=== PATIENT | female | born 1940 | race Caucasian/White ===

== ENCOUNTER 2019-03-25 09:06 | Outpatient (RCR) | payer MEDICARE, OTHER, SELFPAY ==
[2019-03-25 09:33] VITALS: BMI 34.4
[2019-03-25 10:38] VITALS: BMI 34.4
== END 2019-06-23 23:59 | disposition home or self-care (01) ==
LOC: ANHDMC 09:06
PROVIDERS: PCP Family Medicine; Visit Provider Family Medicine
DX: E11.9 Type 2 diabetes mellitus without complications (principal); Z71.3 Dietary counseling and surveillance
CPT/HCPCS: 97803

== ENCOUNTER 2019-06-11 14:34 | Emergency (ER) | payer MEDICARE, OTHER, SELFPAY ==
--- NOTE | ~2019-06-11 | XR_ITS ---
EXAMINATION: XR chest 2V EXAM DATE: 06/11/2019 15:26 INDICATION: Mid sternal chest pain. TECHNIQUE: Frontal and lateral projections of the chest obtained and reviewed. Comparison is made to prior examination from 08/21/2018. FINDINGS: The lungs are clear. There are no pleural effusions. The cardiomediastinal silhouette is within normal limits. There is no pneumothorax suspected. The bones and soft tissues are unremarkab le. Cervical fusion hardware. Left glenohumeral joint replacement. Possible gastroesophageal hiatal hernia. IMPRESSION: No acute cardiopulmonary findings. Possible gastroesophageal hiatal hernia. Reviewed, dictated and finalized at location B. 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
[2019-06-11 14:44] VITALS: BP 152/82; PULSE 88; RESP 17; TEMP 37.1; O2SAT 100
--- NOTE | 2019-06-11 14:44 | ECG_ITS ---
Measurements Intervals [place] Rate: 90 P: 34 HI: 163 QRS: 13 QRSD: 90 T: 70 QT: 359 QTc: 440 Interpretive Statements SINUS RHYTHM FREQUENT ATRIAL PREMATURE COMPLEXES VOLTAGE CRITERIA FOR LVH NONSPECIFIC ST & T-WAVE ABNORMALITY- DIFFUSE LEADS ABNORMAL ECG Electronically Signed On 06-11-2019 14:48:19 CABLE WEAVER by Yunior Mosher D.O.
[2019-06-11 14:57] LABS: Basophils Percent Auto 0.6 % (0.2-1.2); Eosinophils Absolute Auto 0.2 K/mm3 (0-0.3); Eosinophils Percent Auto 2.5 % (0-4.4); Hematocrit 37.3 % (37.0-47.0); Hemoglobin 12.1 g/dL (12.0-15.0); Immature Granulocyte Absolute 0.02 K/mm3 (0.00-0.031); Immature Granulocyte Percent A 0.3 % (0-0.5); Lymphocytes Absolute Auto 1.23 K/mm3 (0.9-3.2); Lymphocytes Percent Auto 17.3 % (18.3-44.2); Mean Corpuscular HGB Conc 32.4 g/dl (32-36); Mean Corpuscular Hemoglobin 29.4 pg (26-34); Mean Corpuscular Volume 90.5 fl (80-100); Mean Platelet Volume 9.5 fl (7.4-10.4); Monocytes Absolute Auto 0.5 K/mm3 (0.1-0.6); Neutrophils Absolute Auto 5.1 K/mm3 (1.3-6.7); Neutrophils Percent Auto 72.3 % (45.5-73.1); Platelet Count Result 283 k/mm3 (150-375); Red Blood Count 4.12 M/mm3 (4.2-5.4); Red Cell Distribution Width 12.8 % (11.5-14.5); White Blood Count 7.1 K/mm3 (4.5-10.0)
[2019-06-11 15:08] LABS: Blood Urea Nitrogen 21 mg/dL (7-17); Calcium 8.7 mg/dL (8.4-10.2); Carbon Dioxide 25 mmol/L (22-30); Chloride 98 mmol/L (98-107); Estimated Glomerular Filt Rate > 60; Glucose 302 mg/dL (65-105); Sodium 138 mmol/L (137-145)
[2019-06-11 15:11] LABS: Prothrombin Time 13.3 Seconds (11.1-14.7)
[2019-06-11 15:20] LABS: Troponin I < 0.012 ng/mL (0.000-0.034)
[2019-06-11 16:24] VITALS: BP 161/72; PULSE 84; RESP 21; TEMP 36.8; O2SAT 100; O2SAT 98
--- NOTE | 2019-06-11 16:29 | ED.CHESTPAIN ---
HPI - Chest Pain General Chief Complaint: Chest Pain Stated Complaint: Chest Pain Time Seen by Provider: 06/11/19 16:20 Source: patient and RN notes reviewed Mode of arrival: ambulatory Limitations: no limitations History of Present Illness HPI narrative: A 79 y/o female presents to the ED with constant central chest heaviness beginning last night. She states that she has been having URI symptoms for awhile and was seen by her PCP on Saturday. She reports that she was placed on tetracycline at that time. She notes that a bright pink productive cough. She denies anything aggravating or alleviating her symptoms. She also denies any edema, SOB, fevers, chills, N/V/D, ABD pain, and any other medical complaints at this time. MD complaint: chest heaviness Pertinent past history: asthma Onset (ago): day(s) (last night) Timing of current episode: constant Pain location: other (central) Quality: heaviness Relieving factors: nothing Exacerbating factors: nothing Context: recent illness, new medications (tetracycline) and history of DVT/PE Associated symptoms: cough (bright pink productive) Related Data Home Medications Medication Instructions Recorded Confirmed atorvastatin 10 mg tablet 10 mg PO QPM tablet 03/11/19 blood sugar diagnostic #10 each 03/11/19 furosemide 40 mg tablet 40 mg PO QAM PRN 03/26/19 Allergies Allergy/AdvReac Type Severity Reaction Status Date / Time No Known Allergies Allergy Verified 06/08/19 08:23 Review of Systems Review of Systems: All systems reviewed & are unremarkable except as noted in HPI and below Constitutional: Constitutional: Denies chills, Denies fatigue, Denies fever(s), Denies headache(s) and Denies night sweats Eyes: Eyes: Denies change in vision, Denies loss of vision and Denies other visual disturbances ENT: Denies headache(s), Denies hoarseness, Denies epistaxis, Denies nasal congestion and Denies sore throat Cardiovascular: Cardiovascular: Reports chest pain (central heaviness), Denies leg edema, Denies palpitations and Denies dyspnea Respiratory: Respiratory: Reports cough (pink productive), Denies dyspnea and Denies wheezing Gastrointestinal: Gastrointestinal: Denies abdominal pain, Denies diarrhea, Denies nausea and Denies vomiting Genitourinary: Genitourinary: Denies hematuria, Denies urinary frequency and Denies dysuria Musculoskeletal: Musculoskeletal: Denies abnormal gait, Denies deformity, Denies joint swelling, Denies muscle weakness and Denies numbness Integumentary/Breasts: Skin/Breast: Denies rash, Denies unusual bruising and Denies wounds Neurologic: Denies abnormal gait, Denies headache(s), Denies focal weakness, Denies loss of vision and Denies numbness Psychiatric: Psychiatric: Reports no additional psychiatric complaints Endocrine: Endocrine: Denies fatigue and Denies palpitations Hematologic/Lymphatic: Hematologic/Lymphatic: Denies easy bleeding and Denies easy bruising Allergic/Immunologic: Allergic/Immunologic: Denies wheezing PMFSH Past Medical History Medical History Asthma Blood clot in vein Broken neck Bronchitis DDD (degenerative disc disease) Diverticulosis DM (diabetes mellitus) DVT (deep venous thrombosis) Early cataracts, bilateral GERD (gastroesophageal reflux disease) History of rectal polyps OA (osteoarthritis) Pulmonary embolism Shingles Sinusitis, bacterial Type 2 diabetes mellitus Surgical History Surgical History History of back surgery History of bladder surgery History of foot surgery History of hysterectomy History of knee replacement procedure of left knee History of knee replacement procedure of right knee History of neck surgery History of shoulder replacement History of tonsillectomy Family History Family History Sibling Family history of blood dyscrasia Family history of cardiovas
[2019-06-11 16:39] VITALS: BP 145/89; PULSE 83; RESP 16; O2SAT 100
[2019-06-11 17:30] VITALS: BP 144/96; PULSE 83; RESP 20; TEMP 36.2; O2SAT 98
[2019-06-11 18:20] LABS: Troponin I 0.012 ng/mL (0.000-0.034)
[2019-06-11] MEDS: BELLADONNA ALK/PHENOB ELIX 10 ML, MAG HYDROX/ALUMINUM HYD/SIMETH 30 ML, LIDOCAINE HCL 2... PO (19:30)
[2019-06-11 20:59] VITALS: BP 132/70; PULSE 78; RESP 18; TEMP 36.6; O2SAT 97
== END 2019-06-11 21:01 | disposition home or self-care (01) ==
PROVIDERS: Emergency Medicine; Emergency Provider Emergency Medicine; PCP Family Medicine
DX: K20.9 Esophagitis, unspecified (principal); E11.9 Type 2 diabetes mellitus without complications; Z86.718 Personal history of other venous thrombosis and embolism
CPT/HCPCS: 36415; 71046; 80048; 84484; 85025; 85610; 85730; 93005; 99284; A9270

== ENCOUNTER 2019-08-31 09:49 | Outpatient (CLI) | payer MEDICARE, OTHER, SELFPAY ==
--- NOTE | ~2019-08-31 | XR_ITS ---
XR hip RT min 3V w AP pelvis DATE: 08/31/2019 10:05 INDICATION: Right hip pain for one month. Fall 6 months ago. TECHNIQUE: AP pelvis. AP, lateral and crosstable lateral views of right hip COMPARISON: None FINDINGS: There is osteitis pubis. The pubic symphysis and sacral iliac joints are intact. There is degenerative disease and degenerative change at the apophyseal joints in the included lower lumbar and lumbosacral area. No pelvic fracture or bone destruction. No fracture, dislocation, avascular necrosis or bone destruction of the right hip. IMPRESSION: Osteitis pubis Degenerative changes of the lumbar and lumbosacral spine No fracture or dislocation or bone destruction of the right hip Reviewed, dictated and finalized at location A.
== END 2019-08-31 09:50 | disposition home or self-care (01) ==
PROVIDERS: PCP Family Medicine; Visit Provider Family Medicine
DX: M25.551 Pain in right hip (principal); M47.26 Other spondylosis with radiculopathy, lumbar region; M86.8X8 Other osteomyelitis, other site
CPT/HCPCS: 73502

== ENCOUNTER 2020-03-11 07:32 | Outpatient (CLI) | payer MEDICARE, OTHER, SELFPAY | END 2020-03-11 07:33 | disposition home or self-care (01) | PROVIDERS: PCP Family Medicine; Visit Provider Physician Assistant | DX: K52.9 Noninfective gastroenteritis and colitis, unspecified (principal) | CPT/HCPCS: 87045; 87046; 87324; 87427 ==

== ENCOUNTER 2020-08-16 09:25 | Outpatient (CLI) | payer MEDICARE, OTHER, SELFPAY ==
--- NOTE | ~2020-08-16 | MM_ITS ---
EXAMINATION: [place] [facility] [place] HISTORY: Screening TECHNIQUE: Craniocaudal and mediolateral oblique 3-D tomosynthesis images were obtained and synthetic 2-D images were generated. CAD analysis was submitted and interpreted. COMPARISON: Comparison to multiple prior studies sequentially, with oldest reviewed study dated 11/2012. BREAST PARENCHYMAL COMPOSITION: There are scattered areas of fibroglandular density. FINDINGS: There are developing clustered calcifications in the upper inner quadrant of the left breas t, middle third. The right breast is stable without evidence for malignancy. IMPRESSION: 1. Developing clustered nonspecific left breast calcifications, upper inner quadrant. 2. Magnification views are recommended. BI-RADS Category 0: Incomplete: Needs additional imaging evaluation. Reviewed, dictated and finalized at location A. IMPRESSION: 1. Developing clustered nonspecific left breast calcifications, upper inner mandi drant. 2. Magnification views are recommended. BI-RADS Category 0: Incomplete: Needs additional imaging evaluation.
== END 2020-08-16 09:26 | disposition home or self-care (01) ==
LOC: ANHIMG 09:33
PROVIDERS: PCP Family Medicine; Visit Provider Family Medicine
DX: Z12.31 Encounter for screening mammogram for malignant neoplasm of breast (principal); R92.8 Other abnormal and inconclusive findings on diagnostic imaging of breast
CPT/HCPCS: 77063; 77067

== ENCOUNTER 2020-08-26 11:51 | Outpatient (CLI) | payer MEDICARE, OTHER, SELFPAY ==
--- NOTE | ~2020-08-26 | MM_ITS ---
EXAMINATION: MM diagnostic mammo unilat LT HISTORY: Left breast calcifications on screening mammogram TECHNIQUE: Magnification views of the left breast were performed. CAD analysis was submitted and int erpreted. COMPARISON: 08/16/2020, 05/01/2019,02/29/2016 FINDINGS: There are calcifications at the 12:00 location in the breast approximately 7 cm from the ni pple. These are too small and two few in number to characterize. No associated mass or architectural distortion is identified. IMPRESSION: 1. Probably benign left breast calcifications. 2. Recommend 6 month follow-up left diagnostic mammogram. BI-RADS category 3, probably benign findings. Reviewed, dictated and finalized at location A.
== END 2020-08-26 11:52 | disposition home or self-care (01) ==
LOC: ANHIMG 11:53
PROVIDERS: PCP Family Medicine; Visit Provider Physician Assistant
DX: R92.8 Other abnormal and inconclusive findings on diagnostic imaging of breast (principal)
CPT/HCPCS: 77065

== ENCOUNTER 2020-09-13 18:03 | Emergency (ER) | payer MEDICARE, OTHER, SELFPAY ==
[2020-09-13 18:09] VITALS: BP 150/73; PULSE 76; RESP 18; TEMP 36.6; O2SAT 97
--- NOTE | 2020-09-13 18:41 | ED.EXTPRO ---
HPI - Extremity Problem General Chief complaint: Extremity Problem,Nontraumatic Stated complaint: right calf pain Time Seen by Provider: 09/13/20 18:35 Source: patient Mode of arrival: ambulatory Limitations: no limitations History of Present Illness HPI Narrative: Patient is a 80-year-old female complaining of right leg pain, mild, aching, started approximately 1 month ago, but states that when she saw her field software engineer last week there was pain when he palpated on her calf but today there is no pain. Patient saw her field software engineer today and was told to go to the emergency room to rule out a DVT. Denies any injury to her right leg. Patient denies any chest pain, shortness of breath, fever or chills. Related Data Home Medications Medication Instructions Recorded Confirmed cholecalciferol (vitamin D3) 25 25 mcg PO DAILY 07/09/19 03/09/20 mcg (1,000 unit) capsule fexofenadine 180 mg tablet 180 mg PO DAILY 07/09/19 03/09/20 guaifenesin 600 mg tablet, 600 mg PO BID 07/09/19 03/09/20 extended release 12 hr mecobalamin (vitamin B12) 1,000 1,000 mcg PO DAILY 07/09/19 03/09/20 mcg chewable tablet Allergies Allergy/AdvReac Type Severity Reaction Status Date / Time No Known Allergies Allergy Verified 09/13/20 18:13 Review of Systems Review of Systems: All systems reviewed & are unremarkable except as noted in HPI and below PMFSH Past Medical History Medical History Asthma Blood clot in vein Broken neck Bronchitis Cough DDD (degenerative disc disease) Diverticulosis DM (diabetes mellitus) DVT (deep venous thrombosis) Early cataracts, bilateral Esophagitis GERD (gastroesophageal reflux disease) Hiatal hernia History of rectal polyps Hypertension OA (osteoarthritis) Pulmonary embolism Right hip pain Shingles Sinusitis, bacterial Type 2 diabetes mellitus Surgical History Surgical History History of back surgery History of bladder surgery History of foot surgery History of hysterectomy History of knee replacement procedure of left knee History of knee replacement procedure of right knee History of neck surgery History of shoulder replacement History of tonsillectomy Family History Family History Sibling Family history of blood dyscrasia Family history of cardiovascular disease Social History Social History Smoking status: Never smoker Second hand tobacco smoke exposure: No Alcohol intake: current Drinks per week: 2 Substance use: never Substance use type: does not use Gender identity (if verbalized by the patient): Female Spiritual care concerns: No Exam Const: General: cooperative, healthy appearing, comfortable, no acute distress, well developed, alert and awake; No confusion Orientation/consciousness: oriented to person, oriented to place, oriented to time, patient oriented x3 and No confusion Limitations: no limitations HENMT: Head: normal to inspection, normocephalic and atraumatic Ears: hearing grossly normal bilaterally, TM normal on the right and TM normal on the left General nose exam: Normal external nose present, Normal nares present and No nasal discharge present Face and sinus: normal facial exam Mouth: Yes Normal oral and palatal mucosa present, Yes lip normal, Yes tongue normal and Yes oropharynx normal Throat: posterior oropharynx normal, tonsils normal and uvula midline Eyes: General: appearance normal, both eyes and all related structures Pupils: Equal, round and reactive pupils present EOM: EOMs intact bilaterally Neck: Neck: normal visual inspection, full ROM, no lymphadenopathy and no meningeal signs Chest: Chest palpation & inspection: normal inspection of the chest Resp: Effort & Inspection: normal respiratory effort, able to speak in c
== END 2020-09-13 19:38 | disposition home or self-care (01) ==
PROVIDERS: Emergency Provider Emergency Medicine; PCP Family Medicine
DX: M79.604 Pain in right leg (principal); J45.909 Unspecified asthma, uncomplicated; E11.9 Type 2 diabetes mellitus without complications; Z86.718 Personal history of other venous thrombosis and embolism; K21.9 Gastro-esophageal reflux disease without esophagitis; I10 Essential (primary) hypertension; M19.90 Unspecified osteoarthritis, unspecified site
CPT/HCPCS: 99281

== ENCOUNTER 2020-09-14 07:17 | Outpatient (CLI) | payer MEDICARE, OTHER, SELFPAY ==
--- NOTE | ~2020-09-14 | US_ITS ---
EXAMINATION: US venous doppler LE RT DATE: 09/14/2020 08:07 INDICATION: Right lower limb pain and swelling TECHNIQUE: Grayscale ultrasound images without and with compression and Doppler ultrasound images of the right lower extremity veins were obtained. COMPARISON: 03/10/2018 FINDINGS: The visualized portions of right common femoral vein, profunda (deep) femoral vein, femoral vein, pop liteal vein, peroneal trunk, posterior tibial veins, peroneal veins, gastrocnemius vein and greater s aphenous vein outflow remain patent. IMPRESSION: 1. No deep venous thrombosis in the right lower limb. Reviewed, dictated and finalized at location A.
== END 2020-09-14 07:18 | disposition home or self-care (01) ==
PROVIDERS: PCP Family Medicine; Referring Provider Podiatrist Foot & Ankle Surgery; Visit Provider Family Medicine
DX: M79.604 Pain in right leg (principal)
CPT/HCPCS: 93971

== ENCOUNTER → 2020-09-19 12:34 | Outpatient (CLI) | payer MEDICARE, OTHER, SELFPAY ==
--- NOTE | ~2020-09-19 | XR_ITS ---
XR chest 2V 09/19/2020 13:24 Indication: Shortness of breath. History of COPD. Procedure: 2 view chest Comparison: Comparison to multiple prior studies sequentially, with oldest reviewed study dated 08/2012. Findings: Heart size normal. Small hiatal hernia. Chronic atelectasis/scarring left midlung zone. The re are bilateral shoulder arthroplasties. There is spinal fusion changes at the cervicothoracic junct ion. No acute focal pneumonia, edema or effusion. Impression: 1: No acute cardiopulmonary disease. Reviewed, dictated and finalized at location B. Impression: 1: No acute cardiopulmonary disease.
== END ==
PROVIDERS: Visit Provider Physician Assistant
DX: R06.02 Shortness of breath (principal)
CPT/HCPCS: 71046

== ENCOUNTER 2021-02-27 10:36 | Outpatient (CLI) | payer MEDICARE, OTHER, SELFPAY ==
--- NOTE | ~2021-02-27 | MM_ITS ---
EXAMINATION: MM diagnostic [place] LT w [facility] HISTORY: Six-month follow-up for probably benign left breast calcifications TECHNIQUE: Craniocaudal, mediolateral, and mediolateral oblique 3-D tomosynthesis images of the left breast were performed and synthetic 2-D images were generated. Magnification views are also obtained. CAD analysis was submitted and interpreted. COMPARISON: 08/26/2020, 08/16/2020, 05/01/2019,02/29/2016 BREAST PARENCHYMAL COMPOSITION: There are scattered areas of fibroglandular density. FINDINGS: Again seen are stable calcifications at the 12:00 location approximately 7 cm from the nipp le. These remain too few in number to characterize and have not increased in size or number. No assoc iated mass or architectural distortion are identified. IMPRESSION: 1. Stable, probably benign left breast calcifications. 2. Recommend 6 month follow-up diagnostic mammogram. BI-RADS category 3, probably benign findings. Reviewed, dictated and finalized at location A. E CRUSHER
== END 2021-02-27 10:37 | disposition home or self-care (01) ==
LOC: ANHIMG 10:40
PROVIDERS: PCP Family Medicine; Visit Provider Physician Assistant
DX: R92.8 Other abnormal and inconclusive findings on diagnostic imaging of breast (principal)
CPT/HCPCS: 77061; 77065; G0279

== ENCOUNTER 2021-08-22 11:11 | Outpatient (CLI) | payer MEDICARE, OTHER, SELFPAY ==
--- NOTE | ~2021-08-22 | MM_ITS ---
EXAMINATION: MM diagnostic [place] BI w [facility] HISTORY: Follow-up left breast calcifications TECHNIQUE: Additional 3-D tomosynthesis images of the breasts were performed and synthetic 2-D images were generated. CAD analysis was submitted and interpreted. COMPARISON: Comparison to multiple prior studies sequentially, with oldest reviewed study dated 06/2014. BREAST PARENCHYMAL COMPOSITION: 02/15/2015 FINDINGS: There are stable left breast calcifications, likely benign. No new masses, calcifications o r architectural distortion in either breast to suggest malignancy. IMPRESSION: 1. Stable likely benign left breast calcifications. 2. Given one year of interval stability, recommend 12 month followup diagnostic bilateral mammogram BI-RADS category 3, probably benign findings. Reviewed, dictated and finalized at location A.
== END 2021-08-22 11:12 | disposition home or self-care (01) ==
PROVIDERS: PCP Family Medicine; Visit Provider Physician Assistant
DX: R92.8 Other abnormal and inconclusive findings on diagnostic imaging of breast (principal)
CPT/HCPCS: 77062; 77066; G0279

== ENCOUNTER 2022-07-06 13:02 | Emergency (ER) | payer MEDICARE, OTHER, SELFPAY ==
--- NOTE | ~2022-07-06 | CT_ITS ---
EXAMINATION: CTA chest PE protocol DATE: 07/06/2022 14:39 INDICATION: Shortness of breath TECHNIQUE: Computed tomography angiography (CTA) of the chest was performed with 100 mL Omnipaque-350 intravenous contrast timed to evaluate the pulmonary arteries. Coronal maximum intensity projection 3D-reconstructions were created by the technologist. The dose-length product (DLP) was 392.56 mGy-cm. Automated exposure control and iterative reconstruction technique were employed. COMPARISON: None. FINDINGS: The pulmonary arteries are well-opacified. No pulmonary embolism is identified. There is mi ld atelectasis in the lingula and lower lobes. No pleural effusion or pneumothorax. There is a modera te-sized sliding hiatal hernia. No pathologically enlarged thoracic lymph nodes are identified. The h eart size is normal. Changes of bilateral total shoulder arthroplasty and anterior fusion at the cerv icothoracic junction are noted. There is moderate thoracic spondylosis. Cysts of the liver measure u p to 4 cm in the right hepatic lobe. IMPRESSION: 1. . Bullous identified. 2. Moderate-sized sliding hiatal hernia. Reviewed, dictated and finalized at location B.
--- NOTE | ~2022-07-06 | XR_ITS ---
EXAMINATION: XR chest 2V DATE: 07/06/2022 13:44 INDICATION: Shortness of breath TECHNIQUE: PA and lateral views of the chest are obtained. COMPARISON: 09/19/2020 FINDINGS: There is mild chronic scarring in the left lung. The lungs are free of acute opacities. No pleural effusion or pneumothorax. The cardiomediastinal silhouette is normal. There is moderate thora cic spondylosis. Changes of bilateral total shoulder arthroplasty anterior fusion procedure at the ce rvicothoracic junction are noted. IMPRESSION: 1. No acute cardiopulmonary abnormality. Reviewed, dictated and finalized at location B.
[2022-07-06 13:06] VITALS: BP 133/77; PULSE 107; RESP 18; TEMP 36.4; O2SAT 99
--- NOTE | 2022-07-06 13:12 | ECG_ITS ---
Measurements Intervals [place] Rate: 89 P: 54 [place]: 164 QRS: 8 QRSD: 90 T: 32 QT: 352 QTc: 430 Interpretive Statements SINUS RHYTHM LOW QRS VOLTAGE IN PRECORDIAL LEADS LEFT VENTRICULAR HYPERTROPHY WITH ST-T CHANGE BORDERLINE T WAVE ABNORMALITY- ANT/INF LEADS BASELINE ARTIFACT- I, II, AVR, AVL, V1-V3 BORDERLINE ECG COMPARED TO ECG 06/11/2019 14:42:54 NO SIGNIFICANT CHANGES Electronically Signed On 07-06-2022 13:43:29 CDT by Yunior Mosher D.O.
[2022-07-06 13:45] LABS: Basophils Percent Auto 0.4 % (0.2-1.2); Eosinophils Absolute Auto 0.1 K/mm3 (0-0.3); Eosinophils Percent Auto 1.5 % (0-4.4); Hematocrit 36.7 % (37.0-47.0); Hemoglobin 11.6 g/dL (12.0-15.0); Immature Granulocyte Absolute 0.04 K/mm3 (0.00-0.031); Immature Granulocyte Percent A 0.4 % (0-0.5); Lymphocytes Percent Auto 17.7 % (18.3-44.2); Mean Corpuscular HGB Conc 31.6 g/dl (32-36); Mean Corpuscular Hemoglobin 25.6 pg (26-34); Mean Corpuscular Volume 80.8 fl (80-100); Mean Platelet Volume 9.4 fl (7.4-10.4); Monocytes Absolute Auto 0.7 K/mm3 (0.1-0.6); Monocytes Percent Auto 7.6 % (2.6-8.5); Neutrophils Percent Auto 72.4 % (45.5-73.1); Platelet Count Result 376 k/mm3 (150-375); Red Blood Count 4.54 M/mm3 (4.2-5.4); White Blood Count 9.6 K/mm3 (4.5-10.0)
[2022-07-06 13:57] LABS: Alanine Aminotransferase 27 U/L (6-35); Albumin Level 4.3 g/dL (3.5-5.1); Alkaline Phosphatase 56 U/L (38-126); Anion Gap 9 mmol/L (8-16); Aspartate Amino Transferase 30 U/L (14-36); Bilirubin,Total 0.6 mg/dL (0.2-1.3); Blood Urea Nitrogen 32 mg/dL (7-17); Carbon Dioxide 27 mmol/L (22-30); Chloride 103 mmol/L (98-107); Estimated Glomerular Filt Rate 48; Glucose 122 mg/dL (65-110); Potassium 4.5 mmol/L (3.4-5.0); Sodium 139 mmol/L (137-145)
[2022-07-06 14:07] VITALS: PULSE 61
[2022-07-06 15:54] LABS: INR 1.1; Prothrombin Time 13.6 Seconds (11.1-14.7)
[2022-07-06] MEDS: methylPREDNISolone SOD SUCC 125 MG VIAL IV PUSH (15:54)
[2022-07-06 15:55] LABS: Lipase 52 U/L (23-300); Partial Thromboplastin Time 30.7 SECONDS (22.3-36.8)
[2022-07-06 16:09] LABS: Troponin I < 0.012 ng/mL (0.000-0.034)
--- NOTE | 2022-07-06 16:53 | ED.GENADULT ---
HPI - General Adult General Chief complaint: Shortness of Breath/Dyspnea Stated complaint: sent from for possible blood clot Time Seen by Provider: 07/06/22 13:44 Source: RN notes reviewed History of Present Illness HPI narrative: Patient presents emergency department from urgent care for shortness of breath. The patient states that she was diagnosed with COVID on June 25 she states at that time she was treated with Paxlovid but since that time is continued no shortness of breath states she is continue to have a cough and states that she has had mucus production has been yellowish-green nature she states she will cough up large amounts of mucus at times she states has had intermittent subjective fevers but has had no measured fever she denies any chest pain she denies any abdominal pain vomiting or diarrhea. Patient states that she does have a history of asthma and does use her albuterol inhaler at home also has Tessalon Perles at home patient had gone to urgent care and with continued shortness of breath concern of pulmonary embolism has been sent for further evaluation in the emergency department Related Data Home Medications Medication Instructions Recorded Confirmed fexofenadine 180 mg tablet 180 mg PO DAILY 07/09/19 06/25/22 ([facility]) Allergies Allergy/AdvReac Type Severity Reaction Status Date / Time No Known Allergies Allergy Verified 07/06/22 14:13 Review of Systems Review of Systems: Gen.: Denies fevers or chills Eyes: Denies eye pain or visual change ENT: Denies congestion Respiratory: See HPI CV: Denies chest pain or palpitations GI: Denies abdominal pain nausea, emesis or diarrhea Musculoskeletal: Denies back pain or muscle pain Neuro: Denies numbness, tingling, weakness or focal weakness Skin: Denies rash Except as documented, all other systems reviewed and negative [facility] Past Medical History Medical History Asthma Cough DDD (degenerative disc disease) Diabetic peripheral neuropathy associated with type 2 diabetes mellitus Diverticulosis DM (diabetes mellitus) DVT (deep venous thrombosis) Esophagitis GERD (gastroesophageal reflux disease) Hiatal hernia History of rectal polyps Hypertension OA (osteoarthritis) Pulmonary embolism Type 2 diabetes mellitus URI (upper respiratory infection) Surgical History Surgical History History of back surgery History of bladder surgery History of foot surgery History of hysterectomy History of knee replacement procedure of left knee History of knee replacement procedure of right knee History of neck surgery History of shoulder replacement History of tonsillectomy Family History Family History Sibling Family history of blood dyscrasia Family history of cardiovascular disease Social History Social History Smoking status: Never smoker Second hand tobacco smoke exposure: No Alcohol intake: current Drinks per week: 2 Substance use: never Substance use type: does not use Lack of Transportation: No Lack of Food: Never True Current Housing: I Have Housing Concerned About Future Housing: No Difficulty Paying Gas/Electric Bills: No Difficulty Paying for Meds: No Currently Unemployed: No Education: High School Diploma/GED Difficulty w/ Childcare or Family Care: No Living arrangements: with family Occupation/Education: retired Gender identity (if verbalized by the patient): Female Sexual Orientation (if Verbalized by the Patient): Straight or Heterosexual Spiritual care concerns: No Agree to blood products: Yes Exam Narrative: APPEARANCE: No acute distress, nontoxic, resting in bed EYES: EOMI HEENT: Normocephalic, atraumatic, nares patent, oral mucosa moist erythema or exud
[2022-07-06 17:35] VITALS: BP 133/85; PULSE 80; RESP 14; O2SAT 92
== END 2022-07-06 17:53 | disposition home or self-care (01) ==
PROVIDERS: Emergency Provider Emergency Medicine; PCP Family Medicine
DX: U07.1 COVID-19 (principal); J98.01 Acute bronchospasm; E11.42 Type 2 diabetes mellitus with diabetic polyneuropathy; K21.9 Gastro-esophageal reflux disease without esophagitis; I10 Essential (primary) hypertension; Z86.718 Personal history of other venous thrombosis and embolism; Z86.711 Personal history of pulmonary embolism; Z79.51 Long term (current) use of inhaled steroids; Z79.899 Other long term (current) drug therapy; Z79.84 Long term (current) use of oral hypoglycemic drugs
CPT/HCPCS: 36415; 71046; 71275; 80053; 83690; 84484; 85025; 85610; 85730; 93005; 96374; 99284; J2930; Q9967

== ENCOUNTER 2022-09-05 09:10 | Outpatient (CLI) | payer MEDICARE, OTHER, SELFPAY ==
--- NOTE | ~2022-09-05 | MM_ITS ---
EXAMINATION: MM screening [place] BI w [facility] HISTORY: Screening mammogram TECHNIQUE: Craniocaudal and mediolateral oblique 3-D tomosynthesis images were obtained and synthetic 2-D images were generated. CAD analysis was submitted and interpreted. COMPARISON: 08/22/2021, 02/27/2021, 08/26/2020, 08/16/2020 BREAST PARENCHYMAL COMPOSITION: There are scattered areas of fibroglandular density. FINDINGS: No suspicious mass, calcification, or architectural distortion are identified in either ric ast to suggest malignancy. There has been no suspicious interval change. IMPRESSION: 1. No mammographic evidence of malignancy. 2. Recommend routine screening mammography while the patient remains in good health. BI-RADS Category 1: Negative Reviewed, dictated and finalized at location A. IMPRESSION: 1. No mammographic evidence of malignancy. 2. Recommend routine screening mammography while the patient remains in good he alth. BI-RADS Category 1: Negative
== END 2022-09-05 09:11 | disposition home or self-care (01) ==
LOC: ANHIMG 09:12
PROVIDERS: PCP Family Medicine; Visit Provider Family Medicine
DX: Z12.31 Encounter for screening mammogram for malignant neoplasm of breast (principal)
CPT/HCPCS: 77063; 77067

== ENCOUNTER 2023-01-15 07:47 | Outpatient (CLI) | payer MEDICARE, OTHER, SELFPAY ==
--- NOTE | 2023-01-16 13:46 | WPDPFTINT ---
PFT Procedure Performed PFT Procedure Performed Spirometry with Pre/Post Bronchodilator Plethysmography (Lung Vol) Diffusing Cap (DLCO) Flow Vol Loop PFT Interpretation Lung volumes were measured with the body plethysmography method. Lung volumes are unremarkable. Spirometry showed normal expiratory flow rates and a normal FEV1 to FVC ratio of 78%. Following administration of a bronchodilator there was no significant increase in expiratory flow rates. Lung diffusion capacity is normal at 74% predicted. The flow-volume loop is unremarkable. Impression: Spirometry, lung volumes, and lung diffusion capacity all within the normal range.
--- NOTE | 2023-01-16 13:47 | WPDSIXMINUTE ---
Six Minute Walk Procedure Procedure Performed Pulmonary Stress Test (6 min walk) Six Minute Walk Six Minute Walk: This 6 minute walk test was carried out with the patient breathing ambient air. The pre walk oxyhemoglobin saturation was 97%. The patient walked 274 m with no stops during testing. During the walk the oxyhemoglobin saturation remained in the range of 93% to 96%. Impression: No evidence of oxyhemoglobin desaturation on this testing.
== END 2023-01-15 07:48 | disposition home or self-care (01) ==
LOC: ANHPFT 07:49
PROVIDERS: PCP Family Medicine; Visit Provider Nurse Practitioner Family
DX: R06.09 Other forms of dyspnea (principal); J45.909 Unspecified asthma, uncomplicated
CPT/HCPCS: 94060; 94618; 94726; 94729

== ENCOUNTER 2023-03-11 10:22 | Outpatient (CLI) | payer MEDICARE, OTHER, SELFPAY ==
[2023-03-11 11:22] LABS: Influenza A QL RT-PCR Negative (Negative); Influenza B QL RT-PCR Negative (Negative); RSV RNA, RT-PCR Negative (Negative); SARS-CoV-2 RNA PCR Negative (Negative)
== END 2023-03-11 10:23 | disposition home or self-care (01) ==
LOC: ANHLAB 10:24
PROVIDERS: PCP Family Medicine; Visit Provider Family Medicine
DX: J06.9 Acute upper respiratory infection, unspecified (principal); Z20.822 Contact with and (suspected) exposure to COVID-19
CPT/HCPCS: 87637

== ENCOUNTER 2023-03-26 12:34 | Outpatient (CLI) | payer MEDICARE, OTHER, SELFPAY ==
--- NOTE | 2023-03-26 12:38 | ECHO_ITS ---
Patient Info Name: Usman Lainez Age: 83 years : 1940 Gender: Female Ht: 60 in Wt: 180 lbs BSA: 1.90 m2 HR: 71 bpm BP: 130 / 78 mmHg Heart Rhythm: Sinus Rhythm Technical Quality: Fair Exam Date: 03/26/2023 1:06 PM Exam Location: Echo Lab Patient Status: Outpatient Admit Date: 03/26/2023 Staff Ordering Physician: Marcos Moura APRN Attending Provider: Marcos Moura APRN Referring Physician: Martell CRUZ; Exam Type: CA echo doppler color flow Study Info Indications R06.09 - Other forms of dyspnea Complete two-dimensional, color flow and Doppler transthoracic echocardiogram is performed. Summary 1. Complete two-dimensional, color flow and Doppler transthoracic echocardiogram is performed. 2. Left ventricular chamber dimension is normal. 3. Left ventricular systolic function is normal, estimated at 60-65%. 4. There is mild concentric increased left ventricular wall thickness. 5. The left ventricular diastolic function is grade I diastolic dysfunction. 6. E/e' 11 is mildly elevated. 7. Left atrial chamber dimension is moderately enlarged. 8. There is moderate aortic valve sclerosis. 9. There is mild aortic valve stenosis with a peak velocity of 188 cm/s, mean gradient of 7 mmHg, and aortic valve area of 1.8 cm2. 10. There is trace mitral valve regurgitation. 11. There is mild to moderate tricuspid valve regurgitation. 12. No pulmonary hypertension, estimated pulmonary arterial systolic pressure is 39 mmHg. Left Ventricle E/e' 11 is mildly elevated. Left ventricular chamber dimension is normal. Left ventricular systolic function is normal, estimated at 60-65%. There is mild concentric increased left ventricular wall thickness. The left ventricular diastolic function is grade I diastolic dysfunction. Right Ventricle Right ventricular systolic function is normal and with normal TAPSE 2.4 cm. Right ventricular chamber dimension is normal. Left Atria Left atrial chamber dimension is moderately enlarged. Right Atria Right atrial chamber dimension is normal. Aortic Valve The aortic valve is trileaflet. There is moderate aortic valve sclerosis. There is mild aortic valve stenosis with a peak velocity of 188 cm/s, mean gradient of 7 mmHg, and aortic valve area of 1.8 cm2. There is no aortic valve regurgitation. Pulmonic Valve There is no pulmonic regurgitation. Mitral Valve There is no mitral valve stenosis. There is trace mitral valve regurgitation. Tricuspid Valve There is mild to moderate tricuspid valve regurgitation. No pulmonary hypertension, estimated pulmonary arterial systolic pressure is 39 mmHg. Pericardium/Pleural There is no pericardial effusion. Inferior Vena Cava Normal inferior vena cava with >50% collapse upon inspiration consistent with normal right atrial pressure, 5 mmHg. Aorta The aortic root size at the sinus of Valsalva is normal. Left Ventricular Outflow Tract Name Value Normal LVOT 2D LVOT Diameter 2.0 cm LVOT Doppler LVOT Peak Gradient 4 mmHg LVOT Mean Gradient 2 mmHg LVOT VTI 24 cm LVOT VTI/AV VTI Ratio 0.6 LVOT Stroke Vo
== END 2023-03-26 12:35 | disposition home or self-care (01) ==
LOC: ANHCARD 12:35
PROVIDERS: PCP Family Medicine; Visit Provider Nurse Practitioner Family
DX: R06.09 Other forms of dyspnea (principal); R93.1 Abnormal findings on diagnostic imaging of heart and coronary circulation; I35.8 Other nonrheumatic aortic valve disorders; I35.0 Nonrheumatic aortic (valve) stenosis; I34.0 Nonrheumatic mitral (valve) insufficiency; I07.1 Rheumatic tricuspid insufficiency
CPT/HCPCS: 93306

== ENCOUNTER 2023-04-06 20:55 | Emergency (ER) | payer MEDICARE, OTHER, SELFPAY ==
[2023-04-06 21:41] VITALS: BP 167/87; PULSE 88; RESP 15; TEMP 36.5; O2SAT 96
[2023-04-07 00:25] VITALS: BP 183/77; PULSE 79; RESP 16; O2SAT 100
--- NOTE | 2023-04-07 00:58 | ED.EPISTAXIS ---
HPI - Epistaxis General Chief complaint: Epistaxis <CHKIA Chaves Last Filed: 04/07/23 03:32> Stated complaint: epitaxis <CHIKA Chaves Last Filed: 04/07/23 03:32> Time Seen by Provider: 04/07/23 00:40 <CHIKA Chaves Last Filed: 04/07/23 03:32> Source: patient <CHIKA Chaves Last Filed: 04/07/23 03:32> Mode of arrival: ambulatory <CHIKA Chaves Last Filed: 04/07/23 03:32> Limitations: no limitations <CHIKA Chaves Last Filed: 04/07/23 03:32> History of Present Illness HPI Narrative: This is a 83 year old female that presents to the ER for nosebleed. Ongoing intermittently since yesterday morning. Reports tonight she was not able to get it to stop which prompted her to be seen. She is not on anticoagulation. Denies fevers. <CHIKA Chaves Last Filed: 04/07/23 03:32> Related Data Home medications: Home Medications Medication Instructions Recorded Confirmed fexofenadine 180 mg tablet 180 mg PO DAILY 07/09/19 04/10/23 (U[facility] Allergy) <Gwendolyn Haile PA-C - Last Filed: 04/07/23 03:32> Allergies/adverse reactions: Allergies Allergy/AdvReac Type Severity Reaction Status Date / Time No Known Allergies Allergy Verified 04/10/23 08:37 <CHIKA Chaves Last Filed: 04/07/23 03:32> Review of Systems Review of Systems: CONSTITUTIONAL: Denies fever, ENT: Reports epistaxis <CHIKA Chaves Last Filed: 04/07/23 03:32> All systems reviewed & are unremarkable except as noted in HPI and below <CHIKA Chaves Last Filed: 04/07/23 03:32> [facility] Past Medical History Medical History: Medical History Asthma COVID-19 DDD (degenerative disc disease) Diabetic peripheral neuropathy associated with type 2 diabetes mellitus Diverticulosis DM (diabetes mellitus) DVT (deep venous thrombosis) Esophagitis GERD (gastroesophageal reflux disease) Hiatal hernia History of rectal polyps Hypertension Mucoid diarrhea OA (osteoarthritis) Pale stool Pulmonary embolism Sinusitis, bacterial Type 2 diabetes mellitus <Gwendolyn Haile PA-C - Last Filed: 04/07/23 03:32> Surgical History Surgical History: Surgical History History of back surgery History of bladder surgery History of foot surgery History of hysterectomy History of knee replacement procedure of left knee History of knee replacement procedure of right knee History of neck surgery History of shoulder replacement History of tonsillectomy <Gwendolyn Haile PA-C - Last Filed: 04/07/23 03:32> Family History Family History: Family History Sibling Family history of blood dyscrasia Family history of cardiovascular disease <Gwendolyn Haile PA-C - Last Filed: 04/07/23 03:32> Social History Social History: Social History Smoking status: Never smoker Second hand tobacco smoke exposure: No Alcohol intake: current Drinks per week: 2 Substance use: never Substance use type: does not use Lack of Transportation: No Lack of Food: Never True Current Housing: I Have Housing Concerned About Future Housing: No Difficulty Paying Gas/Electric Bills: No Difficulty Paying for Meds: No Currently Unemployed: No Education: High School Diploma/GED Difficulty w/ Childcare or Family Care: No Living arrangements: with family Occupation/Education: retired Gender identity (if verbalized by the patient): Female Sexual Orientation (if Verbalized by the Patient): Straight or Heterosexual Spiritual care concerns: No Agree to blood products: Yes <CHIKA Chaves Last Filed: 04/07/23 03:32> Exam Narrative: GENERAL: Well-appearing, well-no
[2023-04-07] MEDS: OXYMETAZOLINE HCL 0.05% NAS 15 ML BTL (*BKC) 1 SPRAY NASAL (01:03)
== END 2023-04-07 03:54 | disposition home or self-care (01) ==
PROVIDERS: Emergency Provider Physician Assistant; PCP Family Medicine
DX: R04.0 Epistaxis (principal); J45.909 Unspecified asthma, uncomplicated; E11.42 Type 2 diabetes mellitus with diabetic polyneuropathy; M19.90 Unspecified osteoarthritis, unspecified site; K21.9 Gastro-esophageal reflux disease without esophagitis; Z86.711 Personal history of pulmonary embolism
CPT/HCPCS: 30901; 99283; A9270

== ENCOUNTER 2023-05-14 11:50 | Outpatient (CLI) | payer MEDICARE, OTHER, SELFPAY ==
--- NOTE | ~2023-05-14 | XR_ITS ---
XR chest 2V DATE: 05/14/2023 12:10 INDICATION: Cough since January TECHNIQUE: PA and lateral views COMPARISON: 07/02/2022 CT pulmonary scan FINDINGS: Chronic discoid atelectasis and/or scarring in the left mid and both lower lung zones, pres ent on 07/02/2022 CTA chest examination. Mild cardiomegaly. Mild aortic arch calcification. Moderately large hiatal hernia. No hilar or mediastinal enlargement. No pulmonary vascular congestion, pulmonary infiltrate or consol idation, pleural effusion or pneumothorax. Bilateral glenohumeral joint replacement. IMPRESSION: Chronic discoid atelectasis or more likely scarring in left mid and both lower lung zones , present on 07/02/2022 Mild cardiomegaly Aortic atherosclerosis Moderately large hiatal hernia Reviewed, dictated and finalized at location L. [employer] ELECTRICIAN IMPRESSION: Chronic discoid atelectasis or more likely scarring in left mid and both lower lung zones, present on 07/02/2022 Mild cardiomegaly Aortic atherosclerosis Moderately large hiatal hernia
== END 2023-05-14 11:51 | disposition home or self-care (01) ==
LOC: ANHIMG 11:55
PROVIDERS: PCP Family Medicine; Visit Provider Nurse Practitioner Family
DX: R91.8 Other nonspecific abnormal finding of lung field (principal); I51.7 Cardiomegaly; I70.0 Atherosclerosis of aorta; K44.9 Diaphragmatic hernia without obstruction or gangrene
CPT/HCPCS: 71046

== ENCOUNTER 2023-05-28 09:49 | Outpatient (CLI) | payer MEDICARE, OTHER, SELFPAY ==
--- NOTE | ~2023-05-28 | NM_ITS ---
EXAMINATION: NM estelita stress w perfusion DATE: 05/28/2023 12:41 INDICATION: Other forms of dyspnea TECHNIQUE: Rest images were obtained following intravenous administration of 9.1 mCi Tc99m tetrofosmi n (Myoview). The patient was infused intravenously with Lexiscan (Regadenoson). Then, 36.7 mCi Tc99m tetrofosmin (Myoview) was administered intravenously, and stress images were obtained. Data was recon structed into short axis and horizontal and vertical long axis SPECT images. Gated SPECT images were also obtained. COMPARISON: None. FINDINGS: Small focus of equivocal mild decreased activity at the mid anterior segment on the non gat ed post stress imaging which essentially normalized on gated imaging and with larger more prominent d ecreased perfusion is a region on the rest images which would favor breast attenuation artifact over infarct.. There is normal left ventricular chamber size, wall motion and ejection fraction. Left ve ntricular ejection fraction measures 70%. IMPRESSION: 1. Normal myocardial perfusion on the gated post stress images with mild likely breast attenuation ar tifact at the anterior wall on the non gated post stress images and more prominent on the rest images . 2. Left ventricular ejection fraction measuring >70%. Reviewed, dictated and finalized at location A. ENSATION MANAGER IMPRESSION: 1. Normal myocardial perfusion on the gated post stress images with mild likely breast attenuation artifact at the anterior wall on the non gated post stress images and more prominent on the rest images. 2. Left ventricular ejection fraction measuring >70%.
--- NOTE | 2023-05-28 10:23 | EST_ITS ---
Patient Info Name: Usman Lainez Age: 83 years : 1940 Gender: Female Ht: 60 in Wt: 183 lbs BSA: 1.92 m2 BP: 151 / 81 mmHg Exam Date: 05/28/2023 11:47 AM Exam Location: Echo Lab Patient Status: Outpatient Admit Date: 05/28/2023 Staff Ordering Physician: Yunior Mosher DO Attending Provider: Yunior Mosher DO Exercise Technologist: Juli De Paz CT Exercise Physician: Yunior Mosher DO Exam Type: CA stress estelita w NM Study Info Indications R06.09 - Other forms of dyspnea A regadenoson stress test was performed. Summary 1. 1. Negative lexiscan stress test for ischemic ST changes by ECG criteria. 2. 2. Baseline hypertension. 3. 3. Nuclear scan to follow and will be reported separately. Please correlate with it. 4. 4. Patient informed of the above results. Protocol: Lexiscan Stress ECG Details Stage: REST Duration (min): 1 min : 17 sec HR (bpm): 69 SBP (mmHg): 151 DBP (mmHg): 81 Stage: REST Duration (min): 7 min : 36 sec HR (bpm): 72 SBP (mmHg): 151 DBP (mmHg): 81 Stage: STAGE 1 Duration (min): 1 min : 0 sec HR (bpm): 96 SBP (mmHg): 169 DBP (mmHg): 88 Stage: RECOVERY Duration (min): 1 min : 0 sec HR (bpm): 93 SBP (mmHg): 169 DBP (mmHg): 88 Stage: RECOVERY Duration (min): 2 min : 0 sec HR (bpm): 85 SBP (mmHg): 169 DBP (mmHg): 88 Stage: RECOVERY Duration (min): 3 min : 0 sec HR (bpm): 84 SBP (mmHg): 155 DBP (mmHg): 83 Stage: RECOVERY Duration (min): 3 min : 19 sec HR (bpm): 84 SBP (mmHg): 155 DBP (mmHg): 83 Rest HR: 72 bpm Peak HR: 96 bpm Rest Sys BP: 151 mmHg Peak Sys BP: 169 mmHg Max Pred HR: 139 bpm % Max Pred HR: 69 % Target HR: 118 bpm Max RPP: 16,224 bpm*mmHg Termination Reason: Reached target heart rate or workload Cardiac Symptoms: Shortness of breath Total Time: 1 min : 0 sec Rest Robles BP: 81 mmHg Peak Robles BP: 88 mmHg Total Dose: 0.4 mg Resting ECG Sinus rhythm. Stress ECG No ST changes. Arrhythmias None. Report Signatures
== END 2023-05-28 09:50 | disposition home or self-care (01) ==
PROVIDERS: PCP Family Medicine; Visit Provider Internal Medicine Cardiovascular Disease
DX: R06.09 Other forms of dyspnea (principal); I10 Essential (primary) hypertension
CPT/HCPCS: 78452; 93017; A9502; J2785

== ENCOUNTER 2023-06-13 16:19 | Emergency (ER) | payer MEDICARE, OTHER, SELFPAY ==
[2023-06-13 16:22] VITALS: BP 147/71; PULSE 85; RESP 16; TEMP 36.4; O2SAT 100
[2023-06-13 16:59] LABS: Basophils Percent Auto 0.7 % (0.2-1.2); Eosinophils Absolute Auto 0.2 K/mm3 (0-0.3); Eosinophils Percent Auto 3.6 % (0-4.4); Hematocrit 26.2 % (37.0-47.0); Hemoglobin 7.5 g/dL (12.0-15.0); Immature Granulocyte Absolute 0.01 K/mm3 (0.00-0.031); Immature Granulocyte Percent A 0.2 % (0-0.5); Lymphocytes Percent Auto 21.5 % (18.3-44.2); Mean Corpuscular HGB Conc 28.6 g/dl (32-36); Mean Corpuscular Hemoglobin 21.1 pg (26-34); Mean Corpuscular Volume 73.8 fl (80-100); Mean Platelet Volume 9.7 fl (7.4-10.4); Monocytes Absolute Auto 0.6 K/mm3 (0.1-0.6); Monocytes Percent Auto 9.4 % (2.6-8.5); Neutrophils Absolute Auto 3.9 K/mm3 (1.3-6.7); Neutrophils Percent Auto 64.6 % (45.5-73.1); Platelet Count Result 390 k/mm3 (150-375); Red Blood Count 3.55 M/mm3 (4.2-5.4); Red Cell Distribution Width 17.8 % (11.5-14.5)
[2023-06-13 17:09] LABS: Alanine Aminotransferase 19 U/L (6-35); Albumin Level 4.1 g/dL (3.5-5.1); Alkaline Phosphatase 46 U/L (38-126); Anion Gap 6 mmol/L (8-16); Aspartate Amino Transferase 24 U/L (14-36); Bilirubin,Total 0.3 mg/dL (0.2-1.3); Blood Urea Nitrogen 25 mg/dL (7-17); Carbon Dioxide 27 mmol/L (22-30); Chloride 105 mmol/L (98-107); Estimated CRCL calculation 41 ml/min; Estimated Glomerular Filt Rate 60; Glucose 216 mg/dL (65-110); Potassium 4.1 mmol/L (3.4-5.0); Sodium 138 mmol/L (137-145)
[2023-06-13 17:16] LABS: Anisocytosis 1+ (NORMAL); Hypochromasia 1+ (NORMAL); Platelet Estimate Increased (Adequate)
[2023-06-13 17:17] LABS: Ovalocytes 1+ (NORMAL); Schistocytes None Seen (NORMAL); Target Cells 1+ (NORMAL)
[2023-06-13 17:34] VITALS: BP 173/99; PULSE 73; RESP 16; O2SAT 98
--- NOTE | 2023-06-13 18:07 | ED.RECABL ---
HPI - Recheck/Abnormal Lab/Rx General Chief Complaint: Recheck/Abnormal Lab/Rx Stated Complaint: ANEMIA AND LOW IRON Time Seen by Provider: 06/13/23 17:50 Source: patient and family (, daughter in law) Mode of arrival: ambulatory Limitations: no limitations History of Present Illness HPI narrative: Patient presents with lab abnormality. She was noted to be anemic on outpatient labs that were ordered by her museum security chief who she was seeing for difficulty breathing. She underwent PFTs and xrays. Labs performed on Saturday and she was notified that her hemoglobin was 6 - point-something by report. She was anemic 40 years ago but no prior blood transfusions. Has not noticed bloody stool. Denies vaginal bleeding, hematuria, hemoptysis, hematemesis. She already had iron studies at [facility] performed and physician ordered that she take iron supplementation with Vitamin C which she has been doing for the past 2 days. She had an episode of epistaxis on 04/07/23 for which she presented to the ed but labs weren't drawn at that time and she denies and recurrence of this. She had been taking a daily aspirin but was advised to stop when her hemoglobin was noted to be low. No other antiplatelets/anticoagulation. Has a periodontist. States she will occasionally experience abdominal pain/cramping but mild and never thought much about it. LBM was this morning; no diarrhea or constipation. Notes a history of diverticulosis appreciated on prior colonoscopy [address] Johnson. In the past week she had a spontaneous black eye; denies trauma but noticed ecchymosis. Related Data Home Medications Medication Instructions Recorded Confirmed fexofenadine 180 mg tablet 180 mg PO DAILY 07/09/19 06/06/23 (Urvashi Allergy) benzonatate 100 mg capsule 100 mg PO BID PRN 05/22/23 06/06/23 Allergies Allergy/AdvReac Type Severity Reaction Status Date / Time No Known Allergies Allergy Verified 06/06/23 08:56 [facility] Past Medical History Medical History Asthma COVID-19 DDD (degenerative disc disease) Diabetic peripheral neuropathy associated with type 2 diabetes mellitus Diverticulosis DM (diabetes mellitus) DVT (deep venous thrombosis) Esophagitis GERD (gastroesophageal reflux disease) Hiatal hernia History of rectal polyps Hypertension Mucoid diarrhea OA (osteoarthritis) Pale stool Pulmonary embolism Sinusitis, bacterial Type 2 diabetes mellitus Surgical History Surgical History History of back surgery History of bladder surgery History of foot surgery History of hysterectomy History of knee replacement procedure of left knee History of knee replacement procedure of right knee History of neck surgery History of shoulder replacement History of tonsillectomy Family History Family History Sibling Family history of blood dyscrasia Family history of cardiovascular disease Social History Social History Smoking status: Never smoker Second hand tobacco smoke exposure: No Alcohol intake: current Drinks per week: 2 Substance use: never Substance use type: does not use Do You Feel Safe in your Home?: Yes Lack of Transportation: No Lack of Food: Never True Current Housing: I Have Housing Concerned About Future Housing: No Difficulty Paying Gas/Electric Bills: No Difficulty Paying for Meds: No Currently Unemployed: No Education: High School Diploma/GED Difficulty w/ Childcare or Family Care: No Living arrangements: with family Occupation/Education: retired Gender identity (if verbalized by the patient): Female Sexual Orientation (if Verbalized by the Patient): Straight or Heterosexual Spiritual care concerns: No Agree to blood products: Yes Exam Narrative: GENERAL: Well-
[2023-06-13 18:57] VITALS: BP 171/77; PULSE 77; RESP 16; TEMP 36.7; O2SAT 98
[2023-06-13 19:21] VITALS: BP 163/86; PULSE 79; RESP 18; O2SAT 100
== END 2023-06-13 19:49 | disposition home or self-care (01) ==
PROVIDERS: Preventive Medicine Aerospace Medicine; Emergency Provider Student in an Organized Health Care Education/Training Program; PCP Family Medicine
DX: D50.9 Iron deficiency anemia, unspecified (principal); J45.909 Unspecified asthma, uncomplicated; E11.42 Type 2 diabetes mellitus with diabetic polyneuropathy; K20.90 Esophagitis, unspecified without bleeding; K21.9 Gastro-esophageal reflux disease without esophagitis; K44.9 Diaphragmatic hernia without obstruction or gangrene; M19.90 Unspecified osteoarthritis, unspecified site; Z87.19 Personal history of other diseases of the digestive system; Z86.711 Personal history of pulmonary embolism; Z86.718 Personal history of other venous thrombosis and embolism; Z86.16 Personal history of COVID-19; Z90.710 Acquired absence of both cervix and uterus; Z96.653 Presence of artificial knee joint, bilateral; Z96.619 Presence of unspecified artificial shoulder joint; Z79.85 Long-term (current) use of injectable non-insulin antidiabetic drugs; Z79.84 Long term (current) use of oral hypoglycemic drugs
CPT/HCPCS: 36415; 80053; 85025; 99283

== ENCOUNTER 2023-06-26 09:54 | Outpatient (CLI) | payer MEDICARE, OTHER, SELFPAY ==
--- NOTE | ~2023-06-26 | US_ITS ---
EXAMINATION: US venous doppler LE RT DATE: 06/26/2023 11:14 INDICATION: Right lower limb localized edema. TECHNIQUE: Grayscale ultrasound images without and with compression and Doppler ultrasound images of the right lower extremity veins were obtained. COMPARISON: Ultrasound 09/14/2020 FINDINGS: The visualized portions of right common femoral vein, profunda (deep) femoral vein, femoral vein, pop liteal vein, peroneal veins, posterior tibial veins, and greater saphenous vein outflow are patent. IMPRESSION: 1. No deep venous thrombosis. Reviewed, dictated and finalized at location A.
== END 2023-06-26 09:55 | disposition home or self-care (01) ==
LOC: ANHIMG 09:56
PROVIDERS: PCP Family Medicine; Visit Provider Internal Medicine Cardiovascular Disease
DX: R60.0 Localized edema (principal)
CPT/HCPCS: 93971

== ENCOUNTER 2023-08-19 00:18 | Day surgery (SDC) | payer MEDICARE, OTHER, SELFPAY ==
[2023-08-06 10:10] VITALS: BMI 35.1
[2023-08-19 07:47] VITALS: BP 151/82; PULSE 62; RESP 18; TEMP 36.1; O2SAT 100
--- NOTE | 2023-08-19 08:01 | WPDANESEPPF ---
Anes - Initial Pre Proc Eval Procedure: Operation Date: 08/19/23 09:00 Proposed Procedures p Esophagogastroduodenoscopy & Colonoscopy - Ruperto Brown MD Date/Time: 08/19/23 08:01 Surgeon: Ruperto Brown MD Pre Op Diagnosis: Iron deficiency anemia unspecified Patient Data Age: 83 Gender: F Height: 1.52 m Weight: 82.1 kg Last Vital Signs Temp 36.1 C L 08/19/23 07:47 Pulse 62 08/19/23 07:47 Resp 18 08/19/23 07:47 BP 151/82 H 08/19/23 07:47 Pulse Ox 100 08/19/23 07:47 O2 Del Method Room Air 08/19/23 07:47 Allergies Allergy/AdvReac Type Severity Reaction Status Date / Time No Known Allergies Allergy Verified 08/19/23 07:46 Home Medications Medication Instructions Recorded Confirmed Type fexofenadine 180 mg tablet 180 mg PO DAILY 07/09/19 08/06/23 History (Urvashi Allergy) lancets (Lancets,Thin) #100 ea 12/12/21 07/25/23 Rx pen needle, diabetic 32 gauge x #100 ea 07/16/22 07/25/23 Rx 5/32 (BD Ultra-Fine Anamaria Pen Needle) levalbuterol tartrate 45 2 inh inhalation Q6H #15 grams 11/02/22 08/06/23 Rx mcg/actuation aerosol inhaler fluticasone furoate 200 1 inh inhalation DAILY #60 ea 01/10/23 08/06/23 Rx mcg-vilanterol 25 mcg/dose inhalation powder (Breo Ellipta) spironolactone 25 mg tablet 25 mg PO DAILY #90 tabs 02/10/23 08/06/23 Rx blood sugar diagnostic #100 ea 02/19/23 07/25/23 Rx mupirocin 2 % topical ointment 1 applic topical .COMPLEX #44 grams 04/10/23 08/06/23 Rx glimepiride 2 mg tablet 4 mg PO QAM #180 tabs 05/15/23 08/06/23 Rx metformin 500 mg tablet,extended 2,000 mg PO DAILY #360 tabs 05/15/23 08/06/23 Rx release 24 hr blood sugar diagnostic (Blood #100 ea 05/21/23 07/25/23 Rx Glucose Test strips) blood-glucose meter #1 ea 05/21/23 07/25/23 Rx atorvastatin 10 mg tablet See Rx Instructions .Route 06/12/23 08/06/23 Rx .COMPLEX #90 tabs semaglutide 0.25 mg or 0.5 mg (2 0.5 mg (0.736 mL) subcut WEEKLY #3 06/18/23 08/06/23 Rx mg/3 mL) subcutaneous pen injector mL (Ozempic) ferrous sulfate 325 mg (65 mg 325 mg PO DAILY #90 tabs 07/05/23 08/06/23 Rx iron) tablet,delayed release azelastine 137 mcg (0.1 %) nasal See Rx Instructions .Route 07/15/23 08/06/23 Rx spray aerosol .COMPLEX #90 mL furosemide 40 mg tablet 40 mg PO QAM PRN edema #90 tabs 07/15/23 08/06/23 Rx omeprazole 40 mg capsule,delayed 40 mg PO DAILY #90 caps 07/15/23 08/06/23 Rx release fluticasone propionate 93 1 spray intranasal Q12H #16 mL 07/23/23 08/06/23 Rx mcg/actuation breath activated aerosol (Xhance) Patient hx anesthesia problems: none Family hx anesthesia problems: none Results Review: All pre-operative results and documents have been reviewed as part of the pre-operative evaluation. [facility] Past Medical History Medical History Asthma COVID-19 DDD (degenerative disc disease) Diabetic peripheral neuropathy associated with type 2 diabetes mellitus Diverticulosis DM (diabetes mellitus) DVT (deep venous thrombosis) Esophagitis GERD (gastroesophageal reflux disease) Hiatal hernia History of rectal polyps Hypertension Mucoid diarrhea OA (osteoarthritis) Pale stool Pulmonary embolism Sinusitis, bacterial Type 2 diabetes mellitus Surgical History Surgical History History of back surgery History of bladder surgery History of foot surgery History of hysterectomy History of knee replacement procedure of left knee History of knee replacement procedure of right knee History of neck surgery History of shoulder replacement History of tonsillectomy Family History Family History Sibling Family history of blood dyscrasia Family history of cardiovascular disease Social History Social History S
[2023-08-19] MEDS: LACTATED RINGERS 1,000 ML 150 ML IV CONT (08:06)
[2023-08-19 08:13] LABS: Glucose Point of Care 107 mg/dl (65-105)
--- NOTE | 2023-08-19 08:41 | WPDHPUPDATE1 ---
History and Physical Update Update Date/Time: 08/19/23 08:41 History and Physical has been reviewed, including an updated exam of the patient. There are NO changes in the patient's condition. Risks, benefits, and alternatives have been discussed and questions answered. Patient agrees to proceed with procedure.
--- NOTE | 2023-08-19 09:00 | SUR.OPER ---
EGD ended at 0855, colon began at 0900
[2023-08-19 09:17] VITALS: BP 116/66; PULSE 65; RESP 23; O2SAT 95
[2023-08-19 09:27] VITALS: BP 117/67; PULSE 60; RESP 17; O2SAT 100
[2023-08-19 09:37] VITALS: BP 109/89; PULSE 59; RESP 17; O2SAT 100
== END 2023-08-19 09:41 | disposition home or self-care (01) ==
PROVIDERS: PCP Family Medicine; Referring Provider Nurse Practitioner; Visit Provider Internal Medicine Gastroenterology
PROC: 0DJ08ZZ Inspection of Upper Intestinal Tract, Via Natural or Artificial Opening Endoscopic (ICD-10-PCS; CPT 43235; principal; 2023-08-19 09:00)
DX: D50.9 Iron deficiency anemia, unspecified (principal); D12.4 Benign neoplasm of descending colon; K64.8 Other hemorrhoids; K57.30 Diverticulosis of large intestine without perforation or abscess without bleeding; K44.9 Diaphragmatic hernia without obstruction or gangrene; K21.9 Gastro-esophageal reflux disease without esophagitis; E11.9 Type 2 diabetes mellitus without complications; J45.909 Unspecified asthma, uncomplicated; I10 Essential (primary) hypertension; E66.9 Obesity, unspecified; Z68.35 Body mass index [BMI] 35.0-35.9, adult; Z79.84 Long term (current) use of oral hypoglycemic drugs; Z79.85 Long-term (current) use of injectable non-insulin antidiabetic drugs; Z79.51 Long term (current) use of inhaled steroids; Z98.890 Other specified postprocedural states; Z98.1 Arthrodesis status; Z86.010 Personal history of colon polyps; Z87.891 Personal history of nicotine dependence; Z86.711 Personal history of pulmonary embolism; Z86.718 Personal history of other venous thrombosis and embolism; Z82.49 Family history of ischemic heart disease and other diseases of the circulatory system
CPT/HCPCS: 43239; 45385; 82948; 88305; J2704; J7120

== ENCOUNTER 2023-09-11 13:29 | Outpatient (CLI) | payer MEDICARE, OTHER, SELFPAY ==
--- NOTE | ~2023-09-11 | MM_ITS ---
EXAMINATION: MM screening [place] BI w harrison HISTORY: Screening TECHNIQUE: Craniocaudal and mediolateral oblique 3-D tomosynthesis images were obtained and synthetic 2-D images were generated. CAD analysis was submitted and interpreted. COMPARISON: Comparison to multiple prior studies sequentially, with oldest reviewed study dated 05/01. BREAST PARENCHYMAL COMPOSITION: Not dense: There are scattered areas of fibroglandular density. FINDINGS: There is no evidence of suspicious mass, calcification, or architectural distortion to sugg est malignancy in either breast. There has been no suspicious interval change. IMPRESSION: 1. No mammographic evidence of malignancy. 2. Recommend routine screening mammography in one year. BI-RADS Category 1: Negative Reviewed, dictated and finalized at location B.
== END 2023-09-11 13:30 | disposition home or self-care (01) ==
PROVIDERS: PCP Family Medicine; Visit Provider Family Medicine
DX: Z12.31 Encounter for screening mammogram for malignant neoplasm of breast (principal)
CPT/HCPCS: 77063; 77067

== ENCOUNTER 2023-10-08 10:42 | Outpatient (CLI) | payer MEDICARE, OTHER, SELFPAY ==
--- NOTE | ~2023-10-08 | XR_ITS ---
XR cervical spine 4-5V Ordering provider: Samia Albrecht PA-C History: . No recent injury lump on upper left side of neck for 2 month . Comparison: None. FINDINGS: VERTEBRAL BODIES: Normal height and alignment. No visible fracture or subluxation. The dens is intact . Postoperative changes seen in the lower cervical area. Degenerative changes of the spine. DISK SPACES: Narrowing of the disc C3-C4. Multilevel facet joint disease. Multilevel uncovertebral trevon int osteoarthritic changes. PARASPINOUS SOFT TISSUES: No prevertebral soft tissue swelling. Bilateral shoulder arthroplasty. IMPRESSION: No acute osseous abnormality cervical spine. Reviewed, dictated and finalized at location A.
== END 2023-10-08 10:43 ==
LOC: MICIMG 10:45
PROVIDERS: PCP Family Medicine; Visit Provider Physician Assistant Medical
DX: M54.2 Cervicalgia (principal)
CPT/HCPCS: 72050

== ENCOUNTER 2023-10-21 09:10 | Outpatient (CLI) | payer MEDICARE, OTHER, SELFPAY ==
--- NOTE | ~2023-10-21 | CT_ITS ---
CT sinus wo con Ordering provider: Rafael Baum MD History: . J32.9 - Chronic sinusitis, unspecified . Comparison: None. Technique: Thin slice Scans CT of the paranasal sinuses was performed with coronal and sagittal refor matted images. No IV contrast. . Automated exposure control and iterative reconstruction technique w ere employed. The dose-length product was 258.77 mGy-cm. Findings: NASAL SEPTUM: Mild left nasal septal deviation. OSTEOMEATAL UNITS: Bilaterally patent. NASAL TURBINATES AND NASOPHARYNX: Gina bullosa of the right middle turbinate. PARANASAL SINUSES: Right maxillary sinus disease. VISUALIZED MASTOIDS: Normal as visualized. BONES: Normal. SUPERFICIAL SOFT TISSUES/VISUALIZED BRAIN PARENCHYMA: Normal. IMPRESSION: Right maxillary sinus disease. Mild left nasal septal deviation. Gina bullosa of the right middle turbinate. Reviewed, dictated and finalized at location A.
== END 2023-10-21 09:11 ==
PROVIDERS: PCP Family Medicine; Visit Provider Otolaryngology
DX: J32.0 Chronic maxillary sinusitis (principal); J34.2 Deviated nasal septum; J34.89 Other specified disorders of nose and nasal sinuses
CPT/HCPCS: 70486

== ENCOUNTER 2023-11-26 10:30 | Outpatient (CLI) | payer MEDICARE, OTHER, SELFPAY ==
--- NOTE | ~2023-11-26 | XR_ITS ---
EXAM: XR lumbar spine 2-3V DATE: 11/26/2023 10:52 HISTORY: M54.50 - Low back pain, unspecified . COMPARISON: None available. FINDINGS: Decreased mineralization. 5 nonrib-bearing lumbar-type vertebral bodies. Pedicles intact. 3 mm retrolisthesis at L1-2 and L2-3. 2 mm anterolisthesis at L3-4 and L4-5. Vertebral body heights pr eserved. Multilevel disc space narrowing and marginal osteophytosis. Moderate L5-S1 where there is al so vacuum phenomenon. Moderate-severe facet arthropathy throughout the lumbar spine, with multilevel interspinous narrowing. No fracture or dislocation. Mild bilateral hip and SI joint osteoarthritis. O steitis pubis. IMPRESSION: Osteopenia. Multilevel grade 1 listheses. Multilevel degenerative disc disease, severe at L5-S1. Multiple level moderate and severe lumbar facet arthropathy. Reviewed, dictated and finalized at location K. IMPRESSION: Osteopenia. Multilevel grade 1 listheses. Multilevel degenerative d isc disease, severe at L5-S1. Multiple level moderate and severe lumbar facet a rthropathy.
== END 2023-11-26 10:31 ==
PROVIDERS: PCP Family Medicine; Visit Provider Student in an Organized Health Care Education/Training Program
DX: M85.88 Other specified disorders of bone density and structure, other site (principal); M43.16 Spondylolisthesis, lumbar region; M51.36 Other intervertebral disc degeneration, lumbar region; M51.37 Other intervertebral disc degeneration, lumbosacral region; M47.816 Spondylosis without myelopathy or radiculopathy, lumbar region
CPT/HCPCS: 72100

== ENCOUNTER 2023-12-02 13:57 | Outpatient (CLI) | payer MEDICARE, OTHER, SELFPAY ==
--- NOTE | ~2023-12-02 | DEXA_ITS ---
Bone Density Report Name: ILYA SPENCER Age: 83 Sex: Female Ethnicity: White Date of : 1940 Indication: postmenopausal; screening for osteoporosis; height loss; asthma or emphysema; hysterectomy; Referring Provider: DAMIEN TREJO Study: Bone densitometry was performed. Exam Date: December 02, 2023 Accession number: [id number] Bone Density: Region BMD T-score Z-score Classification AP Spine(L1-L4) 1.096 0.4 3.2 Normal Femoral Neck (Left) 0.616 -2.1 0.3 Osteopenia Total Hip (Left) 0.873 -0.6 1.6 Normal Femoral Neck (Right) 0.570 -2.5 -0.1 Osteoporosis Total Hip (Right) 0.803 -1.1 1.0 Osteopenia Total Hip Mean 0.838 -0.9 1.3 Normal World Health Organization criteria for BMD impression classify patients as: Normal (T-score at or above -1.0), Osteopenia (T-score between -1.0 and -2.5), or Osteoporosis (T-score at or below -2.5). 10-year Fracture Risk: FRAX not reported because: Some T-score for Spine Total or Hip Total or Femoral Neck at or below -2.5 Previous Exams: Region Exam Age BMD T-score BMD Change BMD Change Date g/cm2 vs Baseline vs Previous AP Spine (L1-L4) 12/02/2023 83 1.096 0.4 0.006 (0.5%) 0.006 (0.5%) 12/02/2023 83 1.090 0.4 *Denotes significance at 95% confidence level, LSC for AP Spine = 0.022 g/cm2 Clinical Information Provided by Patient: Has the following medical conditions: Asthma or Emphysema, Hysterectomy Patient maximum height was 63.0 Drinks caffeinated beverages Onset of menses at age 14 Number of children 3 Impression: The patient has osteoporosis, based on the Right Femoral Neck T-score. No significant bone loss was observed. Discussion: INCREASED RISK OF FRACTURE. BONE DENSITY IS UNDESIRABLY LOW AT ONE OR MORE SKELETAL SITES, CONSISTENT WITH POSTMENOPAUSAL OSTEOPOROSIS. This patient's lowest T-score meets the World Health Organization's (WHO) criteria for osteoporosis at one or more sites (T-score -2.5 or below). In untreated patients, the risk of osteoporotic fracture increases approximately two-fold for each 1.0 SD decrease in T-score. Low bone density is not the only risk factor for fracture; also consider factors such as patient's age, frailty or poor health, risk of falling, risk of injury, previous osteoporotic fracture, family history of osteoporosis, cigarette smoking, low body weight, etc. Not everyone with low bone mineral density has osteoporosis; osteomalacia and other metabolic bone disorders should also be considered. Patients who have osteoporosis carmen
== END 2023-12-02 13:58 | disposition home or self-care (01) ==
LOC: ANHIMG 13:57
PROVIDERS: PCP Family Medicine; Visit Provider Physician Assistant Medical
DX: Z78.0 Asymptomatic menopausal state (principal); M85.852 Other specified disorders of bone density and structure, left thigh; M81.0 Age-related osteoporosis without current pathological fracture
CPT/HCPCS: 77080

== ENCOUNTER 2024-06-06 07:17 | Outpatient (CLI) | payer MEDICARE, OTHER, SELFPAY ==
--- NOTE | ~2024-06-06 | MR_ITS ---
EXAMINATION: MR lumbar spine wo con DATE: 06/06/2024 08:10 INDICATION: Lumbar radiculopathy with mid to lower back pain radiating to the left groin TECHNIQUE: Magnetic resonance imaging (MRI) of the lumbar spine was performed without intravenous con trast. Sequences included sagittal T2-weighted FSE, sagittal T2-weighted FS FSE, sagittal T1-weighted FSE, and axial T2-weighted FSE. COMPARISON: None FINDINGS: 3 mm retrolisthesis T12 on L1, 4 mm retrolisthesis L1 on L2, 3 mm retrolisthesis L2 on L3 with 3 mm a nterolisthesis L3 on L4, 2 mm anterolisthesis L4 on L5 and 2 mm retrolisthesis L5 on S1. Vertebral gisela dy heights are normal. Severe disc height loss at T12-L1 with associated fibrovascular degenerative e ndplate changes. Otherwise normal heterogeneous red and yellow marrow signal. There is moderate to se tony left-sided predominant disc height loss at L4-L5 and moderate to severe right-sided predominant disc height loss at T9-T10 through T11-T12. Moderate disc height loss at L5-S1 and mild disc height l oss at L1-L2 through L3-L4. The conus medullaris terminates at L2. There is normal signal in the caud al spinal cord. Symmetric mild fatty atrophy of the posterior paraspinal musculature. Paravertebral s oft tissues are otherwise unremarkable. The following disc levels are specifically discussed: T12-L1: Disc is bulging. There is moderate bilateral facet joint osteoarthritis. There is moderate bi lateral neural foraminal stenosis. There is mild central canal stenosis. L1-L2: Disc is bulging. There is mild right and severe left facet joint osteoarthritis. There is mode rate bilateral neural foraminal stenosis. There is mild central canal stenosis. L2-L3: Disc is bulging. There is moderate bilateral facet joint osteoarthritis. There is mild to mode rate bilateral neural foraminal stenosis. There is mild central canal stenosis. L3-L4: Disc is bulging. There is severe bilateral facet joint osteoarthritis. There is mild bilateral neural foraminal stenosis. There is mild central canal stenosis. L4-L5: Disc is bulging. There is severe bilateral facet joint osteoarthritis. There is mild right and mild to moderate left neural foraminal stenosis. There is mild central canal stenosis. L5-S1: Disc is bulging. There is moderate right and severe left facet joint osteoarthritis. There is mild bilateral neural foraminal stenosis. There is no central canal stenosis. IMPRESSION: 1. Severe lumbar spondylosis. Reviewed, dictated and finalized at location A. IC SERVICE DIRECTOR
== END 2024-06-06 07:18 | disposition home or self-care (01) ==
PROVIDERS: PCP Family Medicine; Visit Provider Physician Assistant
DX: M47.26 Other spondylosis with radiculopathy, lumbar region (principal)
CPT/HCPCS: 72148

== ENCOUNTER 2024-06-17 10:24 | Outpatient (CLI) | payer MEDICARE, OTHER, SELFPAY ==
--- NOTE | ~2024-06-17 | XR_ITS ---
3 VIEWS LUMBAR SPINE Ordering provider: Shelby Chacon, PA History: . Radiculopathy, lumbar region . Comparison: None. FINDINGS: VERTEBRAL BODIES:Minimal anterolisthesis at the level of L3-L4. No visible fracture or subluxation. DISK SPACES: Narrowing of the disc L1-L2, L2-L3, L4-L5 and L5-S1. Multilevel facet joint disease. SOFT TISSUES: Normal. IMPRESSION: No acute osseous abnormality lumbar spine. Multilevel degenerative disc disease. Reviewed, dictated and finalized at location A. TRONIC SECURITY SPECIALIST
== END 2024-06-17 10:25 | disposition home or self-care (01) ==
LOC: MICIMG 10:26
PROVIDERS: PCP Family Medicine; Visit Provider Physician Assistant
DX: M54.16 Radiculopathy, lumbar region (principal); M51.369 Other intervertebral disc degeneration, lumbar region without mention of lumbar back pain or lower extremity pain
CPT/HCPCS: 72110

== ENCOUNTER 2024-08-19 09:29 | Outpatient (CLI) | payer MEDICARE, OTHER, SELFPAY ==
--- NOTE | ~2024-08-19 | XR_ITS ---
3 VIEWS LUMBAR SPINE Ordering provider: Shelby Chacon, PA History: . Anterolisthesis . Comparison: June 17, 2024. FINDINGS: VERTEBRAL BODIES:Minimal anterolisthesis at the level of L3-L4. No visible fracture or subluxation. Degenerative changes of the spine. DISK SPACES: Narrowing of the disc L1-L2, L2-L3, L3-L4, L4-L5 and L5-S1. Multilevel facet joint disease. SOFT TISSUES: Normal. IMPRESSION: No acute osseous abnormality lumbar spine. Minimal anterolisthesis at the level of L3-L4. Multilevel degenerative disc disease. Reviewed, dictated and finalized at location A.
== END 2024-08-19 09:30 | disposition home or self-care (01) ==
LOC: MICIMG 09:31
PROVIDERS: PCP Family Medicine; Visit Provider Physician Assistant
DX: M43.10 Spondylolisthesis, site unspecified (principal); M51.369 Other intervertebral disc degeneration, lumbar region without mention of lumbar back pain or lower extremity pain
CPT/HCPCS: 72110

== ENCOUNTER 2024-10-02 09:42 | Outpatient (CLI) | payer MEDICARE, OTHER, SELFPAY ==
--- NOTE | ~2024-10-02 | MM_ITS ---
EXAMINATION: MM screening [place] BI w [facility] HISTORY: Screening TECHNIQUE: Craniocaudal and mediolateral oblique 3-D tomosynthesis images were obtained and synthetic 2-D images were generated. CAD analysis was submitted and interpreted. COMPARISON: Comparison to multiple prior studies sequentially, with oldest reviewed study dated 07/2020. BREAST PARENCHYMAL COMPOSITION: Not dense: There are scattered areas of fibroglandular density. FINDINGS: There is no evidence of suspicious mass, calcification, or architectural distortion to sugg est malignancy in either breast. There has been no suspicious interval change. IMPRESSION: 1. No mammographic evidence of malignancy. 2. Recommend routine screening mammography in one year. BI-RADS Category 1: Negative Reviewed, dictated and finalized at location A.
== END 2024-10-02 09:43 | disposition home or self-care (01) ==
LOC: ANHIMG 09:44
PROVIDERS: PCP Family Medicine; Visit Provider Family Medicine
DX: Z12.31 Encounter for screening mammogram for malignant neoplasm of breast (principal)
CPT/HCPCS: 77063; 77067

== ENCOUNTER 2024-12-01 10:54 | Outpatient (CLI) | payer MEDICARE, OTHER, SELFPAY ==
--- NOTE | 2024-12-01 11:27 | ECG_ITS ---
Test Date: 2024-12-01 11:42:17 Measurements Intervals [place] Rate: 67 P: 30 OR: 209 QRS: -5 QRSD: 87 T: 3 QT: 401 QTc: 426 Interpretive Statements SINUS RHYTHM LEFT VENTRICULAR HYPERTROPHY NONSPECIFIC T-WAVE ABNORMALITY- ANT/INF LEADS BORDERLINE ECG No previous ECG available for comparison Electronically Signed On 12-01-2024 11:44:50 CDT by Yunior Mosher D.O.
--- OUTSIDE RECORDS SUMMARY | 2024-12-01 11:31 | XMS_ITS ---
Author Name Auto Generated, Auto Generated Organization [facility] [email or web address] [facility] ices Address [address] [place] [address] Phone [phone] Care Team Providers Care Lead Janitor Name Role Phone Román Thrasher Unavailable Functional Status No Results Mental Status No Results Allergies and Intolerances No Known Allergies Medications Medication Directions Start Date End Date TUBErsol 5 tub. unit/0.1 mL intradermal injection solution 0.1 ml VIAL (ML) Intradermal 1 Time Weekly for 2 Weeks (PPD) 1st injection upon admission. Read between 48 and 72 hours and give 2nd injection 1 week after the 1st if result is negative. If positive result, proceed with chest x-ray to rule out active disease. SatDec 10 15:00:00 EDT 2017Dec 16 01:00:00 EDT 2017 TUBErsol 5 tub. unit/0.1 mL intradermal injection solution Read Results VIAL (ML) Other 1 Time Weekly for 2 Weeks Read results between 48-72 hours after 1st and 2nd 1 week apart. If positive do chest x-ray to rule out active disease. SatDec 13 15:00:00 EDT 2017Dec 16 01:00:00 EDT 2017 ferrous sulfate 325 mg (65 mg iron) tablet,delayed release 325 mg TABLET, DELAYED RELEASE (ENTERIC COATED) Oral 2 Times Daily SatDec 10 17:00:00 EDT 2017Dec 16 01:00:00 EDT 2017 warfarin 1 mg tablet 3 mg TABLET Oral 1 Time Daily SatDec 10 17:00:00 EDT 2017Dec 16 01:00:00 EDT 2017 acetaminophen 325 mg tablet 650 mg TABLE T Oral PRN Every 6 Hours Dx: pain SatDec 10 17:00:00 EDT 2017Dec 16 01:00:00 EDT 2017 ProAir HFA 90 mcg/actuation aerosol inhaler 2 puffs HFA AEROSOL WITH ADAPTER (GRAM) Inhalation PRN Every 6 Hours for wheezing SatDec 10 17:00:00 2017Dec 16 01:00:00 2017 acetaminophen 325 mg tablet 650 mg TABLE T Oral PRN Every 6 Hours SatDec 08 16:00:00 2017Dec 13 08:56:00 2017 atorvastatin 10 mg tablet 10 mg TABLET O ral 1 Time Daily SatDec 09 09:00:00 2017Dec 16 01:00:00 2017 benzonatate 100 mg capsule 100 mg CAPSUL E Oral PRN 3 Times Daily for cough SatDec 08 16:00:00 2017Dec 16 01:00:00 2017 cetirizine 10 mg tablet 10 mg TABLET Ora l 1 Time Daily SatDec 09 09:00:00 2017Dec 16 01:00:00 2017 oxyCODONE 5 mg tablet 5 mg 5 mg TABLET O ral PRN Every 4 Hours for pain SatDec 08 16:00:00 2017Dec 16 01:00:00 2017 Symbicort 160 mcg-4.5 mcg/actuation HFA aerosol inhaler 2 puffs HFA AEROSOL WITH ADAPTER (GRAM) Inhalation 2 Times Daily SatDec 09 10:00:00 2017Dec 16 01:00:00 2017 warfarin 1 mg tablet 2 mg TABLET Oral 1 Time Daily SatDec 08 18:00:00 2017Dec 10 15:59:00 2017 Bydureon 2 mg/0.65 mL subcutaneous pen injector 2 mg PEN INJECTOR (EA) Subcutaneous 1 Time Weekly SatDec 15 16:00:00 2017Dec 16 01:00:00 2017 spironolactone 25 mg tablet 25 mg TABLET Oral 1 Time Daily SatDec 09 17:00:00 2017Dec 16 01:00:00 2017 omeprazole 40 mg capsule,delayed release 40 mg CAPSULE,DELAYED RELEASE (ENTERIC COATED) Oral 1 Time Daily SatDec 09 17:00:00 2017Dec 16 01:00:00 2017 Glucophage XR 500 mg tablet,extended release 2000 mg TABLET, EXTENDED RELEASE 24 HR Oral 1 Time Daily SatDec 09 17:00:00 2017Dec 16 01:00:00 2017 docusate sodium 100 mg capsule 100 mg CAPSULE Oral 2 Times Daily SatDec 09 09:00:00 ED2017Dec 16 01:00:00 EDT 2017 Problems Active Concerns * Aftercare following joint replacement surgery* Code: * Start Date: SatDec 08 00:00:00 ED2017 * End Date: * Text: * Presence of left artificial shoulder joint* Code: * Start Date: SatDec 08 00:00:00 ED2017 * End Date: * Text: * Primary osteoarthritis, left shoulder* Code: * Start Date: SatDec 08 00:00:00 ED2017 * End Date: * Text: * Unspecified asthma, uncomplicated* Code: * Start Date: SatDec 08 00:00:00 EDT 2017 * End Date: * Text: * Gastro-esophageal reflux disease without esophagitis* Code: * Start Date: SatDec 08 00:00:00 ED2017 * End Date: * Text: * Type 2 diabetes mellitus without complications* Code: * Start Date: SatDec 08 00:00:00 ED2017 * End Date: * Text: * Obesity, unspecified* Code: * Start Date: SatDec 08 00:00:00 ED2017 * End Date: * Text: * Body mass index [BMI] 34.0-34.9, adult* Code: * Start Date: SatDec 08 00:00:00 ED2017 * End Date: * Text: * Personal history of other venous thrombosis and embolism* Code: * Start Date: SatDec 08 00:00:00 ED2017 * End Date: * Text: * Personal history of pulmonary embolism* Code: * Start Date: SatDec 08 00:00:00 ED2017 * End Date: * Text: * FPC (current) use of anticoagulants* Code: * Start Date: SatDec 08 00:00:00 ED2017 * End Date: * Text: * Essential (primary) hypertension* Code: * Start Date: SatDec 08 00:00:00 ED2017 * End Date: * Text: * Hyperlipidemia, unspecified* Code: * Start Date: SatDec 08 00:00:00 ED2017 * End Date: * Text: * Personal history of transient ischemic attack (TIA), and cerebral infarction without residual deficits* Code: * Start Date: SatDec 08 00:00:00 ED2017 * End Date: * Text: * Occlusion and stenosis of unspecified carotid artery* Code: * Start Date: SatDec 08 00:00:00 EDT 2017 * End Date: * Text: * Raised antibody titer* Code: * Start Date: SatDec 08 00:00:00 EDT 2017 * End Date: * Text: Reason for Referral Past Medical History
--- OUTSIDE RECORDS SUMMARY | 2024-12-01 11:31 | XMS_ITS ---
Author Name Auto Generated, Auto Generated Organization [facility] ices Address [address] [place] [address] Phone [phone] Care Team Providers Care Newspaper Editor Name Role Phone Román Thrasher Unavailable Functional [...] ED2017 * End Date: * Text: * residential (current) use of anticoagulants* Code: * Start [...]
--- OUTSIDE RECORDS SUMMARY | 2024-12-01 11:32 | XMS_ITS | Clinical Summary ---
Author Organization [facility] Address [address] [place] [address] Care Team Providers Care Capsule Filler Name Role Phone Mary Lion MD Primary Care Provider [phone] Allergies No known active allergies Medications spironolactone (ALDACTONE) 25 mg tablet take 1 tablet by oral route every day 0 0 6 Active Additional Information Patient taking differently:25 mgoral Every morning, Informant: Self, Reported on 07/06/2022 ONETOUCH ULTRA TEST strip TEST 1 TIME A DAY 99 7 Active PROAIR HFA 90 mcg/actuation inhaler USE 2 PUFFS BY MOUTH EVERY 6 HOURS NEEDED FOR WHEEZING 3 7 Active atorvastatin (LIPITOR) 10 mg tablet Take 10 mg by mouth every morning. 3 7 Active metFORMIN XR (GLUCOPHAGE XR) 500 mg 24 hr tablet Take 2,000 mg by mouth nightly. 3 7 Active omeprazole (PriLOSEC) 40 mg capsule Take 40 mg by mouth every morning 3 7 Active benzonatate (TESSALON) 100 mg capsuleIndicati ons:Cough Take 100 mg by mouth 3 (three) times a day as needed for cough. Active BIOTIN ORAL Take by mouth every morning. Active guaiFENesin ER (MUCINEX) 600 mg 12 hr tablet Take 1,200 mg by mouth 2 (two) times a day Active fexofenadine (MICK) 180 mg tablet Take 180 mg by mouth every morning Active fluticasone furoate-vilante roL (BREO ELLIPTA) 100-25 mcg/dose diskus inhalerIndicati ons:Bronchospas m Prevention with COPD Inhale 1 puff every morning Rinse mouth with water after use. Do not swallow. Active furosemide (LASIX) 40 mg tablet Take 40 mg by mouth every morning Active cholecalciferol (VITAMIN D-3) 400 unit capsule Take 25 Units by mouth every morning Active glimepiride (AMARYL) 1 mg tabletIndicatio ns:type 2 diabetes mellitus Take 2 mg by mouth every morning Active acetaminophen 500 mg capsuleIndicati ons:Pain Take 2 capsules (1,000 mg total) by mouth every 6 (six) hours as needed for pain 59 tablet 1 Active oxyCODONE (ROXICODONE) 5 mg immediate release tabletIndicatio ns:Pain Take 1 tablet (5 mg total) by mouth every 4 (four) hours as needed for pain 40 tablet 1 Active rivaroxaban (XARELTO) 10 mg tablet Take 1 tablet (10 mg total) by mouth daily for 28 days 28 tablet 1 Active levalbuterol (XOPENEX HFA) 45 mcg/actuation inhaler Inhale 2 puffs 3 Active Paxlovid, EUA, tablets,dose pack tablets in a dose pack (EUA) TAKE 2 TABLETS (NIRMATRELVIR) AND TAKE 1 TABLET (RITONAVIR) BY MOUTH TWICE A DAY FOR 5 DAYS 3 Active Active Problems Problem Noted Date Diagnosed Date Hyperlipidemia 04/20/2020 COPD (chronic obstructive pulmonary disease) 09/2020 ANAID on CPAP 04/20/2020 Rotator cuff tear arthropathy of right shoulder 03/21/2020 Overview (03/21/2020): Added automatically from request for surgery [id number] Asthma 12/03/2017 GERD (gastroesophageal reflux disease) 8 Type 2 diabetes mellitus 12/03/2017 Class 2 obesity with body ma ss index (BMI) of 37.0 to 37.9 in adult 12/03/2017 History of DVT (deep vein thrombosis) 12/03/2017 Glenohumeral arthritis, left 10/30/2017 Overview (10/30/2017): Added automatically from request for surgery [id number] Deep vein thrombosis (DVT) of lower extremity Overview (07/26/2016): Deep vein thrombosis (DVT) of femoral vein, unspecified chronicity, unspecified laterality Antinuclear factor positive 09/07/2015 Overview (07/26/2016): SIN positive Acute post-operative pain 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 Surgical History Surgery Date Site/Laterality Comments HYSTERECTOMY LUMBAR DISC SURGERY REPLACEMENT TOTAL KNEE BILATERAL FOOT SURGERY multiple foot JOINT REPLACEMENT SHOULDER ARTHROPLASTY 04/15/2017 - 04/14/2018 Left Medical History Medical History Date Comments Deep vein thrombosis (DVT) o f lower extremity (HCC) 09/07/2015 Deep vein thrombosis (DVT) o f femoral vein, unspecified chronicity, unspecified laterality Asthma GERD (gastroesophageal reflu x disease) Diabetes (HCC) Arthritis Sleep apnea Social History Tobacco Use Types Packs/Day Years Used Date Smoking Tobacco: Never Smokeless Tobacco: Never Alcohol Use Standard Drinks/Week Comments Yes 0 (1 standard drink = 0.6 oz pur e alcohol) less than 1 drink/week Comments No Sex and Gender Information Value Date Recorded Sex Assigned at Not on file Legal Sex Female 4:04 AM ADVERTISING AGENCY MANAGER Gender Identity Not on file Sexual Orientation Not on file Obstetrics History Last Filed Vital Signs Vital Sign Reading Time Taken Comments Blood Pressure 136/81 07/06/2022 12:25 PM CDT Pulse 98 07/06/2022 12:25 PM CDT Temperature 36.9 C (98.4 F) 07/06/2022 12:25 PM CDT Respiratory Rate 22 07/06/2022 12:2 5 PM CDT Oxygen Saturation 97% 07/06/2022 12: 25 PM CDT Inhaled Oxygen Concentration - - Weight 81.1 kg (178 lb 11.2 oz) 023 12:25 PM CDT Height 152.4 cm (5') 07/06/2022 12:25 PM CDT Body Mass Index 34.9 07/06/2022 12:25 PM CDT Plan of Treatment Health Maintenance Due Date Last Done Comments Albumin Creatinine Ratio, Urine 1942 Depression Screening 1942 Osteoporosis Screening-Bone Density Scan 1942 eGFR 1942 Dilated Eye Exam 1942 Foot Exam 1942 Hepatitis B Screening 01/18/1960 Zoster Vaccine (1 of 2) 01/18/1992 Well Visit 65+ 2007 Hemoglobin A1C 10/16/2020 04/18/2020, 12/10/2017 Lipid Panel 04/21/2021 04/21/2020, 12/10/2017 Fall Risk Assessment 04/22/2021 04/22/2020 Influenza Vaccine (#1) 2024 9, 01/14/2018, 12/24/2015, Additional history exists DTaP/Tdap/Td Vaccine (3 - Td or Tdap) 01/30/2029 01/30/2019, 02/15/2014, 08/30/2003 Pneumococcal vaccine 65+ Completed 019, 02/09/2016, 02/02/2008 Medical Devices Implanted Type Area Platen Press Feeder Device Identifier Shelf Expiration Date Model / Serial / Lot [employer] [id number] 25mm Reverse Shoulder Baseplate Glenoid Trabecular Metal - [id number] Implanted:Qty: 1 on 12/05/2017 by Gilmer Ignacio MD at [facility] [employer] [id number] 12/14/2027 [id number] / / [id number] [employer] [id number] Steinmann 3/32in 9in 2 Trocar Pin Fixation Nonsterile - [id number] Implanted:Qty: 1 on 12/05/2017 by Gilmer Ignacio MD at [facility] [employer] [id number] / / [employer] .[id number] Ncb Anatomical Shoulder 4.5mm 33mm Inverse Reverse Lock Self Tap - [id number] Implanted:Qty: 1 on 12/05/2017 by Gilmer Ignacio MD at [facility] [employer] [id number] 06/12/2022 01.30134.033 / / [id number] [employer] 01.02161.036 Ncb Anatomical Shoulder 4.5mm 36mm Inverse Reverse Lock Self Tap - [id number] Implanted:Qty: 1 on 12/05/2017 by Gilmer Ignacio MD at [facility] [employer] [id number] 06/12/2022 01.19475.036 / / [id number] [employer] [id number] 36mm Reverse Shoulder Sphere Glenoid Trabecular Metal - [id number] Implanted:Qty: 1 on 12/05/2017 by Gilmer Ignacio MD at [facility] [employer] [id number] 11/13/2027 [id number] / / [id number] [employer] [id number] 12mm 130mm Shoulder Stem Humeral Trabecular Metal Tivanium - [id number] Implanted:Qty: 1 on 12/05/2017 by Gilmer Ignacio MD at [facility] [employer] [id number] 11/13/2027 [id number] / / [id number] [employer] [id number] 36mm Reverse Humerus 7d +0mm Offset Standard Liner Shoulder - [id number] Implanted:Qty: 1 on 12/05/2017 by Gilmer Ignacio MD at [facility] [employer] [id number] 09/12/2025 [id number] / / [id number] [employer] .[id number] Ncb Anatomical Shoulder 4.5mm 42mm Inverse Reverse Lock Self Tap - [id number] - [id number] Implanted:Qty: 1 on 04/21/2020 by Gilmer Ignacio MD at [facility] Right: Shoulder [employer] 04/14/2024.66430.042 / [id number] / [id number] [employer] [id number] 36mm Reverse Shoulder Sphere Glenoid Trabecular Metal - [id number] - [id number] Implanted:Qty: 1 on 04/21/2020 by Gilmer Ignacio MD at [facility] Right: Shoulder [employer] 11/27/2029 [id number] / [id number] / [id number] [employer] [id number] 12mm 130mm Shoulder Stem Humeral Trabecular Metal Tivanium - [id number] Implanted:Qty: 1 on 04/21/2020 by Gilmer Ignacio MD at [facility] Right: Shoulder [employer] 02/06/2030 [id number] / / [id number] [employer] [id number] 36mm Reverse Humerus 7d +0mm Offset Standard Liner Shoulder - [id number] Implanted:Qty: 1 on 04/21/2020 by Gilmer Ignacio MD at [facility] Right: Shoulder [employer] 11/12/2022 [id number] / / [id number] [employer] [id number] 25mm Reverse Shoulder Baseplate Glenoid Trabecular Metal - [id number] - [id number] Implanted:Qty: 1 on 04/21/2020 by Gilmer Ignacio MD at [facility] Right: Shoulder [employer] 10/12/2029 [id number] / [id number] / [id number] [employer] 83058.042 Ncb Anatomical Shoulder 4.5mm 42mm Inverse Reverse Lock Self Tap - [id number] - [id number] Implanted:Qty: 1 on 04/21/2020 by Gilmer Ignacio MD at [facility] Right: Shoulder [employer] 06/12/2024.68300.042 / [id number] / Procedures Procedure Name Priority Date/Time Associated Diagnosis Comments LIPID PANEL Routine 04/21/2020 10:01 PM ADVERTISING AGENCY MANAGER POCT HEMOGLOBIN A1C Routine 04/18/2020 3 :44 PM ADVERTISING AGENCY MANAGER from Last 3 Months or Most Recently Relevant to Health Maintenance Results * Lipid panel (04/21/2020 10:01 PM ADVERTISING AGENCY MANAGER) Cholesterol 115 30 - 199 mg/dL [facility] Comment: Interpretive Data Ages < or = 19 years Acceptable: <170 mg/dL Borderline high: 170-199 mg/dL High: >or= 200 mg/dL Ages > or = 20 years Desirable: <200 mg/dL Borderline high: 200-239 mg/dL High: >or= 240 mg/dL Literature References: 1. Expert Panel on Integrated Guidelines for Cardiovascular Health and Risk Reduction in Children and Adolescents. Pediatrics 2011;128:S213 2. NCEP Expert Panel. Circulation 2003;110:227 Current Interpretive Data was last revised on 2017. Triglycerides 56 <=149 mg/dL [facility] Comment: Interpretive Data Ages < or = 9 years Acceptable: <75 mg/dL Borderline high: 75-99 mg/dL High: >or= 100 mg/dL Ages 10 to 20 years Acceptable: <90 mg/dL Borderline high: 90-129 mg/dL High: >or= 130 mg/dL Ages > or = 20 years Desirable: <150 mg/dL Borderline high: 150-199 mg/dL High: 200-499 mg/dL Very high: >or= 499 mg/dL Literature References: 1. Expert Panel on Integrated Guidelines for Cardiovascular Health and Risk Reduction in Children and Adolescents. Pediatrics 2011;128:S213 2. NCEP Expert Panel. Circulation 2003;110:227 Current Interpretive Data was last revised on 2017. HDL 53 >=40 mg/dL [facility] Comment: Interpretive Data Ages < or = 19 years Acceptable: >45 mg/dL Borderline low: 40-45 mg/dL Low: <40 mg/dL Ages > or = 20 years Desirable: >or= 60 mg/dL Low: <40 mg/dL Literature References: 1. Expert Panel on Integrated Guidelines for Cardiovascular Health and Risk Reduction in Children and Adolescents. Pediatrics 2011;128:S213 2. NCEP Expert Panel. Circulation 2003;110:227 Current Interpretive Data was last revised on 2017. LDL, calculated 51 <=129 mg/dL [facility] Comment: Interpretive Data Ages < or = 19 years Acceptable: <110 mg/dL Borderline high: 110-129 mg/dL High: >or= 130 mg/dL Ages > or = 20 years Optimal: <100 mg/dL Near optimal: 100-129 mg/dL Borderline high: 130-159 mg/dL High: >160 mg/dL Literature References: 1. Expert Panel on Integrated Guidelines for Cardiovascular Health and Risk Reduction in Children and Adolescents. Pediatrics 2011;128:S213 2. NCEP Expert Panel. Circulation 2004;110:227 Current Interpretive Data was last revised on 2017. Non-HDL Cholesterol 62 mg/dL [facility] Comment: Interpretive Data Ages < or = 19 years Acceptable: <120 mg/dL Borderline high: 120-144 mg/dL High: >145 mg/dL Ages > or = 20 years When triglycerides are >200 mg/dL, Non-HDL cholesterol is a secondary target of therapy with treatment goals that are 30 mg/dL greater than the LDL cholesterol target. Literature References: 1. Expert Panel on Integrated Guidelines for Cardiovascular Health and Risk Reduction in Children and Adolescents. Pediatrics 2011;128:S213 2. NCEP Expert Panel. Circulation 2003;110:227 Current Interpretive Data was last revised on 2017. Chol/HDL ratio 2 [facility] Blood specimen (specimen) 04/21/2020 10:01 PM ADVERTISING AGENCY MANAGER 04/21/2020 10:51 PM ADVERTISING AGENCY MANAGER Gilmer Ignacio MD LAB BLOOD ORDERABLES Edite d Result - Final Performing Organization Address [facility] de Phone Number [facility] Department [place] [address] * (ABNORMAL) POCT hemoglobin A1c (04/18/2020 3:44 PM ADVERTISING AGENCY MANAGER) Hgb A1C, POC 7.2(H) 4.0 - 6.0 % [facility] Est Average Gluc POC 160 mg/dL [facility] Comment: The ADA recommends reporting an estimated Average Glucose (eAG) with all Hemoglobin A1c results using the equation derived from a study of 507 normal and diabetic adults. Minority populations were underrepresented and children were not included. (Diabetes Care 31:3599-0882, 2008). The eAG is not equivalent to a fasting glucose. Blood specimen (specimen) 04/18/2020 3:44 PM ADVERTISING AGENCY MANAGER 04/18/2020 3:44 PM ADVERTISING AGENCY MANAGER Gilmer Ignacio MD POINT OF CARE TEST ORDERAB LES Final Result Performing Organization Address [facility]/ZIP Co de Phone Number [facility] Department [place] [address] from Last 3 Months or Most Recently Relevant to Health Maintenance Insurance [employer] [place] MEDICARE MEDICARE [facility] [place] [id number] Advance Directives For more information, please contact: [phone] * Full Code (Latest Code Status on File) Date Activated Date Inactivated Comments 04/21/2020 11:43 AM 04/22/2020 9:28 PM * Full Code Date Activated Date Inactivated Comments 12/05/2017 12:49 PM 12/08/2017 3:07 PM Care Teams Capsule Filler Relationship Specialty Start Date End Date Mray Lion MD PCP - General Family Practice 09/04/18
--- OUTSIDE RECORDS SUMMARY | 2024-12-01 11:32 | XMS_ITS | Encounter Summary ---
Author Organization [employer] Address [address] [place] [address] Care Team Providers Care Pre Algebra Teacher Name Role Phone Unavailable Primary Care Provider Unavailabl e Encounter Details Date Type Department Care Team (Late st Contact Info) Description 12/10/2017 Lab Requisition [facility] [place] [facility] [address] [place] [address] Román Thrasher MD [address] [place] [address] Encounter for general adult medical examination without abnormal findings Social History Tobacco Use Types Packs/Day Years Used Date Smoking Tobacco: Never Assessed Comments Unknown Sex and Gender Information Value Date Recorded Sex Assigned at Not on file Legal Sex Female 8:58 AM CDT Gender Identity Not on file Sexual Orientation Not on file documented as of this encounter Plan of Treatment Not on file documented as of this encounter Procedures Procedure Name Priority Date/Time Associated Diagnosis Comments CBC WITH DIFFERENTIAL Routine 12/10/2017 4:18 AM CDT Encounter for general adult medical examination without abnormal findings PROTIME-INR Routine 12/10/2017 4:18 AM CDT Encounter for general adult medical examination without abnormal findings HEMOGLOBIN A1C Routine 12/10/2017 4:18 AM CDT Encounter for general adult medical examination without abnormal findings LIPID PANEL Routine 12/10/2017 4:18 AM CDT Encounter for general adult medical examination without abnormal findings COMPREHENSIVE METABOLIC PANEL Routine 12/10/2017 4:18 AM CDT Encounter for general adult medical examination without abnormal findings documented in this encounter Results * (ABNORMAL) PROTIME-INR (12/10/2017 4:18 AM CDT) PROTIME 14.9 12.7 - 15.1 Seconds 12/10/2017 9:56 AM T [facility] [employer] [facility] INR 1.2(H) 0.9 - 1.1 12/10/2017 9:56 AM T [facility] [employer] [facility] Blood Venipuncture / Unknown 12/10/2017 4:18 AM CDT 12/10/2017 9:01 AM CDT [facility] [employer] [facility] - 12/10/2017 9:56 AM CDT INR Therapeutic Range: Adult: 2.0 - 3.0 for pulmonary embolism or prophylaxis against venous thrombosis or systemic embolization. 2.0 - 3.0 for patients with tissue heart valves. 2.5 - 3.5 for patients with mechanical heart valves or post MS. Pediatric (12 years and under): 1.5 - 3.0 Although the target range in children is not well established, INR values of 1.5 - 3.0 are recommended for most patients. Higher values have been used in children with prosthetic cardiac valves and hereditary clotting disorders. (<3 days) therapeutic ranges have not been established. Román Thrasher MD HEMATOLOGY ORDERABLES Final Result Performing Organization Address City/State/[facility] Co de Phone Number [facility] [employer] [facility]# [id number] [address] [facility] [place] [id number] * (ABNORMAL) HEMOGLOBIN A1C (12/10/2017 4:18 AM CDT) HEMOGLOBIN A1C 6.2(H) 4.0 - 6.0 % 12/10/2017 11:52 AM T [facility] [employer] [facility] EST. AVG GLUCOSE, A1C 131 mg/dL 12/10/2017 11:52 AM T [facility] [employer] [facility] Blood Venipuncture / Unknown 12/10/2017 4:18 AM CDT 12/10/2017 9:01 AM CDT [facility] [employer] [facility] - 12/10/2017 11:52 AM CDT HGB A1C INTERPRETATION NORMAL: <5.7% PRE-DIABETES: 5.7 - 6.4% DIABETES: 6.5% OR GREATER Román Thrasher MD CHEMISTRY ORDERABLES Final R esult [facility] [facility] [id number] [address] [place] [id number] * LIPID PANEL (12/10/2017 4:18 AM CDT) [facility] CHOLESTEROL 128 <200 mg/dL 12/10/2017 10:31 AM CDT [facility] [employer] [facility] TRIGLYCERIDE 52 <150 mg/dL 12/10/2017 10:31 AM T [facility] [employer] [facility] HDL 48 40 - 59 mg/dL 12/10/2017 10:31 AM T [facility] [employer] [facility] LDL CALCULATED 70 <100 mg/dL 12/10/2017 10:31 AM T [facility] [employer] [facility] NON-HDL CHOLESTEROL 80 <130 mg/dL 12/10/2017 10:31 AM [facility] [employer] [facility] Blood Venipuncture / Unknown 12/10/2017 4:18 AM CDT 12/10/2017 9:01 AM CDT [facility] [employer] [facility] - 12/10/2017 10:31 AM CDT TOTAL CHOLESTEROL mg/dL Desirable <200 Borderline high 200-239 High >=240 TRIGLYCERIDES mg/dL Normal <150 Borderline high 150-199 High 200-499 Very high >=500 HDL CHOLESTEROL mg/dL Low <40 Normal 40-59 Desirable >=60 NON HDL CHOLESTEROL mg/dL Optimal <130 Near Optimal 130-159 Borderline High 160-189 Very High >=190 Calculated LDL mg/dL Optimal <100 Near Optimal 100-129 Borderline High 130-159 High 160-189 Very High >=190 ATPIII Guidelines Reference Ranges for Lipid Panels (NCEP/AMA) us Román Thrasher MD CHEMISTRY ORDERABLES Final R esult [facility] [id number] [address] [place] [address] * (ABNORMAL) CBC WITH DIFFERENTIAL (12/10/2017 4:18 AM CDT) WBC 5.5 4.0 - 9.8 K/uL 12/10/2017 9:43 AM CDT [facility] RBC 3.27(L) 3.90 - 4.90 M/uL 12/10/2017 9:43 AM CDT [facility] HEMOGLOBIN 8.9(L) 11.8 - 14.8 g/dL 12/10/2017 9:43 AM CDT [facility] HEMATOCRIT 29.0(L) 35.5 - 44.0 % 12/10/2017 9:43 AM CDT [facility] MCV 88.7 82.0 - 99.0 fL 12/10/2017 9:43 AM CDT [facility] MCH 27.2 27.2 - 32.6 pg 12/10/2017 9:43 AM CDT [facility] MCHC 30.7(L) 31.5 - 35.5 g/dL 12/10/2017 9:43 AM CDT [facility] RDW 14.5 11.5 - 14.5 % 12/10/2017 9:43 AM CDT [facility] RDW-STDEV 46.7 37.1 - 48.7 fL 12/10/2017 9:43 AM CDT [facility] PLATELETS 268 140 - 350 K/uL 12/10/2017 9:43 AM CDT [facility] MPV 9.8 9.3 - 12.4 fL 12/10/2017 9:43 AM CDT [facility] NEUTROPHILS 66 % 12/10/2017 9:43 AM CDT [facility] LYMPHOCYTES 18 % 12/10/2017 9:43 AM CDT [facility] MONOCYTES 11 % 12/10/2017 9:43 AM CDT [facility] EOSINOPHILS 4 % 12/10/2017 9:43 AM CDT [facility] BASOPHILS 0 % 12/10/2017 9:43 AM CDT [facility] IMMATURE GRANULOCYTES 0 % 12/10/2017 9:43 AM CDT [facility] NEUTROPHIL ABSOLUTE 3.65 1.90 - 7.00 K/uL 12/10/2017 9:43 AM CDT [facility] LYMPHOCYTE ABSOLUTE 1.01 0.70 - 4.50 K/uL 12/10/2017 9:43 AM CDT [facility] MONOCYTE ABSOLUTE 0.59 0.10 - 1.30 K/uL 12/10/2017 9:43 AM CDT [facility] EOSINOPHIL ABSOLUTE 0.24 0.00 - 0.70 K/uL 12/10/2017 9:43 AM CDT [facility] BASOPHILS ABSOLUTE 0.02 0.00 - 0.20 K/uL 12/10/2017 9:43 AM CDT [facility] IMMATURE GRANULOCYTES ABSOLUTE 0.01 0.00 - 0.03 K/uL 12/10/2017 9:43 AM CDT [facility] Blood Venipuncture / Unknown 12/10/2017 4:18 AM CDT 12/10/2017 9:01 AM CDT Román Thrasher MD HEMATOLOGY ORDERABLES Final Result [facility] CLIA# [id number] [facility] [place] [address] * (ABNORMAL) COMPREHENSIVE METABOLIC PANEL (12/10/2017 4:18 AM CDT) [facility] SODIUM 143 136 - 145 mmol/L 12/10/2017 10:31 AM CDT [facility] POTASSIUM 4.0 3.5 - 5.0 mmol/L 12/10/2017 10:31 AM [facility] [employer] [facility] CHLORIDE 104 98 - 107 mmol/L 12/10/2017 10:31 AM [employer] [facility] CO2 25 22 - 29 mmol/L 12/10/2017 10:31 AM [facility] [employer] [facility] CALCIUM 9.3 8.6 - 10.2 mg/dL 12/10/2017 10:31 AM [facility] [employer] [facility] BUN 15 8 - 23 mg/dL 12/10/2017 10:31 AM [facility] [employer] [facility] CREATININE 0.68 0.51 - 0.95 mg/dL 12/10/2017 10:31 AM [facility] [facility] Comment: The GFR result is not clinically significant on patients <18 or >70 years of age. GLUCOSE 90 74 - 99 mg/dL 12/10/2017 10:31 AM [employer] [facility] TOTAL PROTEIN 6.6(L) 6.7 - 8.6 g/dL 12/10/2017 10:31 AM [employer] [facility] ALBUMIN 3.7 3.5 - 5.2 g/dL 12/10/2017 10:31 AM [employer] [facility] BILIRUBIN TOTAL 0.5 0.2 - 1.1 mg/dL 12/10/2017 10:31 AM [facility] [employer] [facility] ALKALINE PHOSPHATASE 41 35 - 104 U/L 12/10/2017 10:31 AM [facility] [facility] AST 14 <33 U/L 12/10/2017 10:31 AM [employer] [facility] ALT 8 <34 U/L 12/10/2017 10:31 AM [facility] GFR >60 mL/min/1.7 3 sq meter 12/10/2017 10:31 AM [employer] [facility] Comment: eGFR has not been validated for use in the elderly (> 70 years of age), women, patients with serious co-morbid conditions, or persons with extremes of body size or muscle mass and should also be interpreted with caution in patients with acute kidney failure, dialysis dependent patients, patients reporting exceptional dietary intake (e.g. vegetarian diet, high protein diets, creatine supplementation), and patients with severe liver disease. Based on National Kidney Disease Education Program If patient is , please refer to the GFR result. GFR, >60 mL/min/1.7 3 sq meter 12/10/2017 10:31 AM T [facility] ANION GAP 14 8 - 16 mmol/L 12/10/2017 10:31 AM [facility] Blood Venipuncture / Unknown 12/10/2017 4:18 AM CDT 12/10/2017 9:01 AM CDT Narrative [facility] - 12/10/2017 10:31 AM CDT Samples containing indocyanine green cause interferences on Total and/or Direct Bilirubin and must not be measured. us Román Thrasher MD CHEMISTRY ORDERABLES Final R esult [facility] [employer] [facility]# [id number] [address] [place] [place] [place] [address] documented in this encounter Visit Diagnoses Diagnosis Encounter for general adult medical examination without abnormal findings Routine general medical examination at a health care facility documented in this encounter
--- OUTSIDE RECORDS SUMMARY | 2024-12-01 11:32 | XMS_ITS | Clinical Summary ---
Author Organization [facility] Address [address] [facility] [place] [address] Phone Care Team Providers Care Hose Inspector Name Role Phone Unavailable Primary Care Provider Unavailabl e Social History Tobacco Use Types Packs/Day Years Used Date Smoking Tobacco: Never Assessed Comments Unknown Sex and Gender Information Value Date Recorded Sex Assigned at Not on file Legal Sex Female 8:58 AM CDT Gender Identity Not on file Sexual Orientation Not on file Plan of Treatment Health Maintenance Due Date Last Done Comments DTAP/TDAP/TD VACCINES (1 - Tdap) 1959 PNEUMOCOCCAL VACCINE 50+ YEARS (1 of 1 - PCV) 01/17/19 92 ZOSTER VACCINE (1 of 2) 01/18/1992 OSTEOPOROSIS SCREENING 2007 RSV VACCINE (60+ or ) (1 - 1-dose 75+ series) 2017 INFLUENZA VACCINE (#1) 2024 Insurance MEDICARE PART A AND B [facility] [place] [address]
[2024-12-01 11:53] LABS: Hematocrit 37.5 % (37.0-47.0); Hemoglobin 12.0 g/dL (12.0-15.0); Immature Granulocyte Percent A 0.5 % (0-0.5); Lymphocytes Absolute Auto 1.31 K/mm3 (0.9-3.2); Mean Corpuscular HGB Conc 32.0 g/dl (32-36); Mean Corpuscular Hemoglobin 30.0 pg (26-34); Mean Corpuscular Volume 93.8 fl (80-100); Nucleated Red Blood Cells Absolute Auto 0.000 K/mm3 (0.0-0.012); Nucleated Red Blood Cells Perc 0.0 % (0.0-0.2); Platelet Count Result 234 k/mm3 (150-375); Red Blood Count 4.00 M/mm3 (4.2-5.4); White Blood Count 6.7 K/mm3 (4.5-10.0)
[2024-12-01 12:11] LABS: Alanine Aminotransferase 19 U/L (6-35); Albumin Level 4.1 g/dL (3.5-5.1); Alkaline Phosphatase 35 U/L (38-126); Anion Gap 7 mmol/L (4-12); Aspartate Amino Transferase 27 U/L (14-36); Bilirubin,Total 0.4 mg/dL (0.2-1.3); Blood Urea Nitrogen 28 mg/dL (7-17); CRP < 0.5 mg/dL (<1.0); Calcium 9.4 mg/dL (8.4-10.2); Carbon Dioxide 26 mmol/L (22-30); Chloride 105 mmol/L (98-107); Estimated Glomerular Filt Rate > 60; Glucose 99 mg/dL (65-110); Potassium 4.2 mmol/L (3.4-5.0); Sodium 138 mmol/L (137-145); Total Protein 7.3 g/dL (6.3-8.2)
[2024-12-01 12:16] LABS: Add Urine Microscopic? YES; Appearance Urine Cloudy (Clear); Glucose Urine UA Negative (Negative); Leukocyte Esterase Ur 2+ LEU/UL (Negative); Nitrate Urine Positive (Negative); Non Pathogenic Casts 0-2; Specific Grav Ur 1.017 (1.001-1.035)
== END 2024-12-01 10:55 | disposition home or self-care (01) ==
PROVIDERS: PCP Family Medicine; Visit Provider Physician Assistant
DX: R94.31 Abnormal electrocardiogram [ECG] [EKG] (principal); Z01.818 Encounter for other preprocedural examination
CPT/HCPCS: 36415; 80053; 81001; 85025; 85652; 86140; 93005